=== PATIENT | male | born 1970 | race Caucasian/White ===

== ENCOUNTER 2021-02-02 10:35 | Emergency (ER) | payer MEDICAID, SELFPAY ==
[2021-02-02 11:22] VITALS: BP 144/104; PULSE 76; RESP 16; TEMP 37.1; O2SAT 97; BMI 25.1
--- NOTE | 2021-02-02 12:24 | ED.EAR ---
HPI - Ear Problem General Chief complaint: Ear Problems Stated complaint: ear pain Time Seen by Provider: 02/02/21 12:08 Source: patient Mode of arrival: ambulatory Limitations: no limitations History of Present Illness HPI Narrative: 50-year-old male presenting to the ED with complaints of left ear pain/purulent discharge for the past few days worse today after he removed a ear bud that was stuck in his ear with a nail approximately a week ago. Reports he has been using peroxide to the ear and appears to be getting worse at this point. Denies any other symptoms complaints or concerns at this time. MD Complaint: ear pain and ear discharge Location: left ear Duration: constant Severity: moderate Relieving factors: nothing Exacerbating factors: palpation Context: trauma (Had a foreign body and removed it) Discharge from ear: yes - purulent Associated symptoms ear: external ear tenderness and ear swelling Treatment prior to arrival: other (Read above) Related Data Previous Rx's Medication Instructions Recorded acetaminophen-codeine 1 tab PO Q8H PRN #10 tab 02/02/21 amoxicillin-pot clavulanate 1 tab PO BID 10 Days #20 tab 02/02/21 [Augmentin] ciprofloxacin HCl 5 drp OTIC (EARS) Q12H 7 Days ea 02/02/21 ibuprofen 800 mg PO Q8H PRN #14 tab 02/02/21 Allergies Allergy/AdvReac Type Severity Reaction Status Date / Time No Known Allergies Allergy Verified 02/02/21 11:20 Review of Systems Review of Systems: Constitutional : No Weight loss, No Fever, No Chills, No Night Sweats, No Fatigue, No Malaise ENT/Mouth : + Ear Pain/drainage, No Hearing loss, No Nasal Congestion, No Sinus Pain, No Hoarseness, No sore throat, No Rhinorrhea, No Swallowing Difficulty Eyes: No Eye Pain, No Swelling, No Redness, No Foreign Body, No Discharge, No Vision Changes Cardiovascular : No Chest Pain, No SOB, No Dyspnea on Exertion, No Orthopnea, No Edema, No Palpitations Respiratory : No Cough, No Sputum, No Wheezing, No Smoke Exposure, No Dyspnea Gastrointestinal : No Nausea, No Vomiting, No Diarrhea, No Constipation, No abdominal Pain, No Hematochezia, No Melena Genitourinary : no irregular bleeding, No Dysuria, No Urinary Frequency, No Hematuria, No Urinary Incontinence, No Urgency, No Flank Pain, No Urinary Flow Changes, No Hesitancy Musculoskeletal : No joint pain, No Myalgias, No Joint Swelling Skin : No Skin Lesions, No rash Neuro : No Weakness, No Numbness, No Paresthesias, No Loss of Consciousness, No Dizziness, No Headache Psych : No Anxiety/Panic, No Depression, No SI/HI/AH/VH, No Social Issues, Heme/Lymph: No Bruising, No Bleeding,No Lymphadenopathy Endocrine : No Polyuria, No Polydipsia, No Temperature Intolerance Yes all other systems are reviewed and are negative [facility] Past Medical History Attestation statement: The following information was validated with the patient. Medical History No known health problems Social History Social History Advance Directives: No Advance Directives Information Provided: No Physical Exam Vital Signs: Vital Signs: Last Vital Signs Temp 98.7 F 02/02/21 11:22 Pulse 76 02/02/21 11:22 Resp 16 02/02/21 11:22 BP 144/104 H 02/02/21 11:22 Pulse Ox 97 02/02/21 11:22 Body Mass Index 25.1 vital signs have been reviewed as normal and appeared to be correct. Blood pressure hypertensive at 144/104. Heart rate normal. Respiration rate normal. Temperature normal. Oxygen saturation normal. Appearance: Alert. Oriented X3. No acute distress. Head: Normal external exam. Normocephalic. Atraumatic. Eyes: PERRLA. EOMI. Conjunctiva and sclera normal. Eyelids normal. ENT: left ear Tender to palpation of tragus and pinna and purulent drainage/swelling to external ear canal consistent with otitis media tympanic membrane is intact although erythematous and bulging consistent with otitis media. Right-sided external ear canal tympanic membrane is within normal limits no signs of infection. pharynx normal. Uvula midline. Moist mucous membranes. Neck: Normal inspection. Neck supple. FROM. No adenopathy. No meningeal signs. No neck mass noted. CVS: Normal heart rate and rhythm. Heart sound normal. Pulses normal throughout. Respiratory: No respiratory distress. Painless inspiration. Back: Full range of motion noted. Skin: Skin warm and dry. Normal skin color. Normal skin turgor. No rashes/lesions/lacerations noted. Extremities: Extremities exhibit normal range of motion. Extremities nontender. Neuro: Oriented X 3. No motor deficit. No sensory deficit. Reflexes normal. Course Course Course Narrative: 50-year-old male presenting to the ED with complaints of left ear pain after he removed headphone that was stuck in his ear with a nail approximately 1 week ago now with persistent pain and drainage on exam patient is noted to be hypertensive although denies any cardiac-related complaints. Has otitis media/otitis externa to left ear right ear is within normal limits. No foreign bodies noted. Will DC home with antibiotics and symptomatic treatment along with instructions return if any new or worsening symptoms to follow up with primary care provider. Patient understands agrees the plan. MDM - Ear Medical Records Attestation: I reviewed the patient's medical records. Discharge Plan Discharge Clinical Impression: Otitis externa, Otitis media Patient Disposition: Home, Self-Care Instructions: Otitis Externa (ED), Serous Otitis Media (ED) Prescriptions: New amoxicillin-pot clavulanate [Augmentin] 875-125 mg tablet 1 tab PO BID 10 Days Qty: 20 RF: 0 ciprofloxacin HCl 0.2 % dropperette 5 drp otic (ears) Q12H 7 Days RF: 0 ibuprofen 800 mg tablet 800 mg PO Q8H PRN (Reason: pain) Qty: 14 RF: 0 acetaminophen-codeine 300-30 mg tablet 1 tab PO Q8H PRN (Reason: pain) Qty: 10 RF: 0 Referrals: Physician,None [Primary Care Provider] - 2 days (your pcp) Print Language: Yoruba
== END 2021-02-02 12:56 | disposition home or self-care (01) ==
PROVIDERS: Emergency Provider Emergency Medicine Emergency Medical Services
DX: H66.92 Otitis media, unspecified, left ear (principal); H60.92 Unspecified otitis externa, left ear; H92.02 Otalgia, left ear; Z79.899 Other long term (current) drug therapy
CPT/HCPCS: 99283

== ENCOUNTER 2021-09-06 10:48 | Outpatient (REF) | payer OTHER, SELFPAY ==
--- NOTE | ~2021-09-06 | XR_ITS ---
EXAMINATION: XR SHOULDER, RIGHT CLINICAL INFORMATION: Right shoulder pain COMPARISON: None TECHNIQUE: Three views of the right shoulder. FINDINGS: Alignment is normal at the acromioclavicular and glenohumeral joints. Small osteophytes are noted at the mildly mildly degenerated joints. There is a lucency at the base of the acromion process which could either represent prior fracture (if history of trauma to the shoulder) or possibly a meta-acromion type of os acromiale. The acromiohumeral distance is normal. No evidence of calcium deposition within rotator cuff tendons. The humeral head is well-positioned over the intact glenoid. No evidence of scapular fracture. There is an old, healed fracture of the right posterolateral seventh rib. 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 * Old, healed fracture of the right posterolateral seventh rib. * Also, there appears to be a fracture lucency or os acromiale of the acromion. Query if there is any history of recent trauma to the shoulder.
== END 2021-09-06 10:49 | disposition home or self-care (01) ==
LOC: HO.HMGCX 10:48
PROVIDERS: PCP Nurse Practitioner Family; Visit Provider Nurse Practitioner Family
DX: M25.511 Pain in right shoulder (principal)
CPT/HCPCS: 73030

== ENCOUNTER 2021-09-28 08:39 | Outpatient (REF) | payer OTHER, SELFPAY ==
--- NOTE | ~2021-09-28 | XR_ITS ---
EXAMINATION: XR SHOULDER, RIGHT CLINICAL INFORMATION: Shoulder pain. COMPARISON: Radiographs right shoulder 09/06/2021 TECHNIQUE: The right shoulder is imaged in 3 views. FINDINGS: The axial view demonstrates some focal lucency with loss of cortical white line involving the posterior aspect mid acromium measuring approximately 0.6 cm in size. There of uncertain chronicity is unknown. Prior exam does not include this projection. The remainder of the bony structures appear similar to prior study with no interval acute or healing fracture or dislocation or destructive process. There are mild degenerative changes again seen glenohumeral and acromioclavicular joints. The acromioclavicular alignment is normal. There is a corticated ossification adjacent to distal inferior acromion again seen measuring approximately 1.4 x 2.2 cm. This may possibly represent sequela from remote injury or an os acromiale variant. There are no visible rotator cuff calcifications. XR/XR shoulder RT min 2V IMPRESSION: 1. Focal cortical lytic lesion posterior mid acromium of unknown chronicity. 2. [place] adjacent to distal inferior chromium, possibly sequela from remote trauma or an os acromiale variant. Mild degenerative changes similar to previous exam. 3. Findings may be further assessed with computed tomography.
== END 2021-09-28 08:40 | disposition home or self-care (01) ==
LOC: HO.HOSX 08:39
PROVIDERS: Visit Provider Physician Assistant
DX: S42.123A Displaced fracture of acromial process, unspecified shoulder, initial encounter for closed fracture (principal)
CPT/HCPCS: 73030; 99202

== ENCOUNTER 2021-11-14 10:13 | Outpatient (REF) | payer OTHER, SELFPAY ==
--- NOTE | ~2021-11-14 | XR_ITS ---
EXAMINATION: XR CERVICAL SPINE CLINICAL INFORMATION: Pain COMPARISON: None TECHNIQUE: 3 views of the cervical spine were obtained. FINDINGS: Normal lordosis is maintained. There is degeneration most noted at C5-C6 and C6-C7 with loss of disc height and both anterior and posterior spurring. Mild posterior spurring at C4-C5 Degenerative change in the articulating facets left greater than right. XR/XR cervical spine 3V IMPRESSION: Moderate degenerative changes. No acute finding.
[2021-11-14 11:15] LABS: Appearance Urine CLEAR; Color Urine YELLOW; Glucose Urine UA NEG (NEG); Leukocyte Esterase Urine NEG (NEG); Nitrite Urine NEG (NEG); PH 7.5 (5.0-8.0); Specific Gravity - Urine 1.015 (1.005-1.025); Urine Blood NEG (NEG); Urine Ketones NEG (NEG); Urine Protein NEG (NEG-TRACE)
[2021-11-14 11:56] LABS: Alanine Aminotransferase 16 U/L (0-40); Albumin Level 4.6 g/dL (3.5-5.0); Alkaline Phosphatase 84 U/L (39-117); Anion Gap 12 (12-20); Aspartate Amino Transferase 20 U/L (5-37); Bilirubin Total 1.5 mg/dL (0.0-1.0); Blood Urea Nitrogen 13 mg/dL (9-16); Carbon Dioxide 29 mmol/L (22-29); Chloride 103 mmol/L (96-108); Cholesterol 213 mg/dL; Estimated Glomerular Filt Rate > 60; Glucose Fasting 95 mg/dL (60-99); HDL Cholesterol 42 mg/dL; LDL Cholesterol Calculated 144 mg/dl; Potassium 4.6 mmol/L (3.3-5.1); Sodium 139 mmol/L (135-145); Total Protein 7.4 g/dL (6.5-8.0); Triglycerides 138 mg/dL
[2021-11-14 12:07] LABS: Prostate Specific Antigen Scr 1.09 ng/mL (<0.05-4.0); TSH reflex Free T4 1.76 uIU/mL (0.32-4.0)
== END 2021-11-14 10:14 | disposition home or self-care (01) ==
LOC: HO.HMGCLDS 10:13
PROVIDERS: PCP Nurse Practitioner Family; Visit Provider Nurse Practitioner Family
DX: Z00.00 Encounter for general adult medical examination without abnormal findings (principal); Z12.5 Encounter for screening for malignant neoplasm of prostate; M54.2 Cervicalgia
CPT/HCPCS: 36415; 72040; 80053; 80061; 81003; 84153; 84443

== ENCOUNTER 2021-11-15 13:31 | Emergency (ER) | payer OTHER, SELFPAY ==
--- NOTE | ~2021-11-15 | CT_ITS ---
EXAMINATION: CT ABDOMEN AND PELVIS WITH CONTRAST CLINICAL INFORMATION: Fall, trauma, pain COMPARISON: CT chest 11/15/2021 TECHNIQUE: Multidetector volumetric images were obtained from the superior aspect of the liver through the pubic symphysis following administration 85 mL of Omnipaque 350 intravenous contrast. Sagittal and coronal reformatted images were obtained on the technologist's workstation. CT chest also performed, described in separate report. Oral contrast: No This CT examination was performed using dose optimization techniques as appropriate, variously including the following: *Automated exposure control *Adjustment of mA and/or kV according to patient size (this includes techniques or standardized protocols for targeted exams where dose is matched to indication/reason for exam; i.e. extremities or head) *Use of iterative reconstruction technique DLP: 665 mGy-cm FINDINGS: LUNG BASES: Subsegmental atelectasis left anterior lateral base. No effusion. LIVER, GALLBLADDER, AND BILIARY TREE: The liver is normal in size, shape, and attenuation. No focal hepatic lesion or biliary ductal dilatation is present. The gallbladder is unremarkable with no evidence of radiopaque gallstones, gallbladder wall thickening, or obvious pericholecystic inflammatory changes. PANCREAS: Unremarkable. SPLEEN: Unremarkable. ADRENAL GLANDS: Unremarkable. KIDNEYS AND URETERS: The kidneys are normal in size, shape, and attenuation. No hydronephrosis, hydroureter, or calculi seen. No perinephric stranding. BLADDER: Unremarkable. GASTROINTESTINAL TRACT: The small and large bowel are unremarkable. The appendix is unremarkable. No ascites or fluid collection. No free air. ABDOMINAL WALL: Soft tissue swelling adjacent to lower left rib fractures, 2.5 cm thickness. LYMPH NODES: No lymphadenopathy. VASCULAR: Unremarkable. PELVIC VISCERA: Unremarkable. OSSEOUS STRUCTURES: Comminuted fractures left anterior lateral 8th and 9th ribs, 1 bone diameter displacement 9th fracture. CT/CT abdomen pelvis w con IMPRESSION: 1. Fractures left anterior lateral 8th and 9th ribs with soft tissue swelling 2.5 cm thickness. 2. Abdominal organs unremarkable. Normal spleen. No ascites or free air. 3. No pneumothorax or effusion. CT chest described in separate report.
--- NOTE | ~2021-11-15 | CT_ITS ---
EXAMINATION: CT CHEST WITH CONTRAST CLINICAL INFORMATION: Fall, trauma, pain COMPARISON: Radiographs cervical spine 11/14/2021, right shoulder 09/28/2021 TECHNIQUE: Multidetector volumetric CT imaging of the chest was obtained after the administration of 85 mL of Omnipaque 350 intravenous contrast without immediate adverse reactions. Axial MIP volume rendering provided. Sagittal and coronal reformatted images were obtained. CT abdomen and pelvis also performed, described in separate report. This CT examination was performed using dose optimization techniques as appropriate, variously including the following: *Automated exposure control *Adjustment of mA and/or kV according to patient size (this includes techniques or standardized protocols for targeted exams where dose is matched to indication/reason for exam; i.e. extremities or head) *Use of iterative reconstruction technique DLP: 401 mGy-cm FINDINGS: LUNGS: No pneumothorax or airspace consolidation. There is disc atelectasis left anterior lateral base. The central airways are clear. No mass or nodule. MEDIASTINUM: Thoracic aorta normal in caliber. No dissection. No hilar or mediastinal adenopathy. No mediastinal hematoma. No pericardial effusion. 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 PLEURA: There is no pleural effusion. No pleural mass or thickening. AXILLA: No lymphadenopathy. UPPER ABDOMEN: CT abdomen and pelvis described in separate report. OSSEOUS STRUCTURES: Subacute fracture right acromium. No acute osseous abnormality. CT/CT chest w con IMPRESSION: 1. No pneumothorax. Lungs clear. No effusion. 2. Thoracic aorta normal in caliber. No dissection. 3. Incidental congenital anomaly great vessels, bovine arch. 4. Subacute fracture right acromium. No acute bony abnormality. 5. CT abdomen and pelvis described in separate report.
[2021-11-15 14:23] VITALS: BP 141/93; PULSE 73; RESP 18; TEMP 36.6; O2SAT 99; BMI 24.4
--- NOTE | 2021-11-15 15:50 | ED.FALL ---
HPI - Fall General Chief Complaint: Fall Stated Complaint: fell 10 ft, L side ribs, knee R hip chills Time Seen by Provider: 11/15/21 15:40 Source: patient Mode of arrival: ambulatory Limitations: no limitations History of Present Illness HPI Narrative: Patient comes to emergency room complaining of left flank/upper abdominal pain. 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 Patient was working on a ladder, standing approximately 11 sputum grew. The ladder slipped and patient fall on the side of his body. Patient states that he did not help lose consciousness, denies any headache, no neck pain. Patient states that the whole weight went into his left flank. Patient also complaining of lumbar pain. Related Data Previous Rx's Medication Instructions Recorded ibuprofen 800 mg tablet 800 mg PO Q8H PRN #14 tab 02/02/21 meloxicam 15 mg tablet 15 mg PO DAILY #30 tab 10/20/21 tizanidine 2 mg tablet 2 mg PO BEDTIME PRN 20 Days #20 tab 11/13/21 acetaminophen 500 mg tablet 500 mg PO QID PRN #20 tab 11/15/21 atorvastatin 10 mg tablet 10 mg PO BEDTIME 90 Days #90 tab 11/15/21 oxycodone 5 mg tablet 5 mg PO TID PRN #7 tab 11/15/21 Allergies Allergy/AdvReac Type Severity Reaction Status Date / Time No Known Allergies Allergy Verified 09/06/21 07:41 Review of Systems Review of Systems: Constitutional : No Weight loss, No Fever, No Chills, No Night Sweats, No Fatigue, No Malaise ENT/Mouth : No Hearing loss, No Ear Pain, No Nasal Congestion, No Sinus Pain, No Hoarseness, No sore throat, No Rhinorrhea, No Swallowing Difficulty Eyes: No Eye Pain, No Swelling, No Redness, No Foreign Body, No Discharge, No Vision Changes Cardiovascular : No Chest Pain, No SOB, No Dyspnea on Exertion, No Orthopnea, No Edema, No Palpitations Respiratory : No Cough, No Sputum, No Wheezing, No Smoke Exposure, No Dyspnea Gastrointestinal : No Nausea, No Vomiting, No Diarrhea, No Constipation, No abdominal Pain, No Hematochezia, No Melena Genitourinary : no irregular bleeding, No Dysuria, No Urinary Frequency, No Hematuria, No Urinary Incontinence, No Urgency, No Flank Pain, No Urinary Flow Changes, No Hesitancy Musculoskeletal : Complaining of left lower rib pain Skin : No Skin Lesions, No rash Neuro : No Weakness, No Numbness, No Paresthesias, No Loss of Consciousness, No Dizziness, No Headache Psych : No Anxiety/Panic, No Depression, No SI/HI/AH/VH, No Social Issues, Heme/Lymph: No Bruising, No Bleeding,No Lymphadenopathy Endocrine : No Polyuria, No Polydipsia, No Temperature Intolerance [facility] Past Medical History Medical History No known health problems Family History Family History Other Mental health disorder Substance use disorder Social History Social History Housing: Other (lives with family (brother)) Patient Tobacco Use Status: Current everyday Tobacco user Tobacco use type: Cigarette Cigarette Packs Per Day: 1 Advance Directives: No Advance Directives Information Provided: No Current occupational status: employed Physical Exam Vital Signs: Vital Signs: Last Vital Signs Temp 97.9 F 11/15/21 14:23 Pulse 77 11/15/21 20:22 Resp 16 11/15/21 20:22 BP 160/101 H 11/15/21 20:22 Pulse Ox 95 11/15/21 20:22 BMI result Body Mass Index 24.4 Const: Other: Appearance: Alert. Oriented X3. No acute distress. Eyes: Pupils equal, round and reactive to light. ENT: Pharynx normal. Neck: Normal inspection. Neck supple. No lymph nodes noted. No crepitus, normal range of motion, no cervical spine tenderness, no palpable step-off CVS: Normal heart rate and rhythm. Pulses normal. Normal S1 and S2 Respiratory: No respiratory distress. Breath sounds normal. No Wheezing. No rales Abdomen: Soft , mild tenderness in the left upper quadrant but mostly on the left flank. On palpation, seems that the lower ribs may be fractured on the left side Skin: Skin warm and dry. Normal skin color. Normal skin turgor. Extremities: No lower extremity edema.No Lacerations. No Rash Neuro: Oriented X 3. No motor deficit. No sensory deficit. Moving all extermities. No slurred speech. Course Course Course Narrative: I discussed the CT findings with the patient, patient has 2 rib fractures. The hematoma in his abdomen seems to be localized between the abdominal wall on the skin. H&H repeat is pending. H&H stable. Patient's hematoma in the abdominal wall is not expanding. MDM - Fall Lab Data Result diagrams: 11/15/21 17:15 11/15/21 Unknown Labs: Lab Results 11/15/21 11/15/21 11/15/21 Range/Units 17:04 17:07 17:15 WBC 13.9 H (4.8-10.8) X10*3/uL RBC 4.95 (4.60-5.80) X10*6/uL Hgb 14.8 (14.0-18.0) g/dl Hct 44.2 (42.0-52.0) % MCV 89.3 (80.0-98.0) fL MCH 29.9 (27.0-33.0) pg MCHC 33.5 (31.0-36.0) g/dl RDW 12.9 (11.0-16.0) % Plt Count 184 (160-400) X10*3/uL MPV 9.3 L (9.4-12.4) fL Immature Gran % (Auto) 0.4 (0.0-0.4) % Neut % (Auto) 77.6 H (45-73) % Lymph % (Auto) 14.4 L (20-40) % [place] % (Auto) 6.7 (2-11) % Eos % (Auto) 0.6 (0-4) % Baso % (Auto) 0.3 (0-2) % Lymph # (Auto) 2.0 (1.2-4.9) X10*3/uL [place] # (Auto) 0.9 (0.1-1.2) X10*3/uL Eos # (Auto) 0.1 (0.0-0.4) X10*3/uL Baso # (Auto) 0.0 (0.0-0.2) X10*3/uL Abs Immat Gran (auto) 0.06 H (0.00-0.03) X10*3/uL Absolute Neuts (auto) 10.8 H (2.0-8.3) x10*3/uL Absolute Nucleated RBC 0.000 (0.0-0.012) X10*3/uL Nucleated RBC % (auto) 0.0 (0.0-0.2) /100WBC PT (9.9-13.0) SEC INR (0.9-1.1) APTT (24.1-38.0) SEC Urine Color YELLOW Urine Appearance CLEAR Urine pH 6.5 (5.0-8.0) Ur Specific [place] 1.015 (1.005-1.025) Urine Protein NEG (NEG-TRACE) MG/DL Urine Glucose (UA) NEG (NEG) MG/DL Urine Ketones NEG (NEG) MG/DL Urine Blood NEG (NEG) Urine Nitrite NEG (NEG) Ur Leukocyte Esterase NEG (NEG) COVID-19 (MARVIN) Negative (Negative) COVID-19 Clin Com See Note 11/15/21 Range/Units 17:15 WBC (4.8-10.8) X10*3/uL RBC (4.60-5.80) X10*6/uL Hgb (14.0-18.0) g/dl Hct (42.0-52.0) % MCV (80.0-98.0) fL MCH (27.0-33.0) pg MCHC (31.0-36.0) g/dl RDW (11.0-16.0) % Plt Count (160-400) X10*3/uL MPV (9.4-12.4) fL Immature Gran % (Auto) (0.0-0.4) % Neut % (Auto) (45-73) % Lymph % (Auto) (20-40) % [place] % (Auto) (2-11) % Eos % (Auto) (0-4) % Baso % (Auto) (0-2) % Lymph # (Auto) (1.2-4.9) X10*3/uL [place] # (Auto) (0.1-1.2) X10*3/uL Eos # (Auto) (0.0-0.4) X10*3/uL Baso # (Auto) (0.0-0.2) X10*3/uL Abs Immat Gran (auto) (0.00-0.03) X10*3/uL Absolute Neuts (auto) (2.0-8.3) x10*3/uL Absolute Nucleated RBC (0.0-0.012) X10*3/uL Nucleated RBC % (auto) (0.0-0.2) /100WBC PT 11.9 (9.9-13.0) SEC INR 1.0 (0.9-1.1) APTT 36.5 (24.1-38.0) SEC Urine Color Urine Appearance Urine pH (5.0-8.0) Ur Specific [place] (1.005-1.025) Urine Protein (NEG-TRACE) MG/DL Urine Glucose (UA) (NEG) MG/DL Urine Ketones (NEG) MG/DL Urine Blood (NEG) Urine Nitrite (NEG) Ur Leukocyte Esterase (NEG) COVID-19 (MARVIN) (Negative) COVID-[address] Clin Com Imaging Data [address] of the abdomen: Radiologist's impression: INDINGS: LUNG BASES: Subsegmental atelectasis left anterior lateral base. No effusion.? LIVER, GALLBLADDER, AND BILIARY TREE: The liver is normal in size, shape, and attenuation. No focal hepatic lesion or biliary ductal dilatation is present. The gallbladder is unremarkable with no evidence of radiopaque gallstones, gallbladder wall thickening, or obvious pericholecystic inflammatory changes.? PANCREAS: Unremarkable.? SPLEEN: Unremarkable.? ADRENAL GLANDS: Unremarkable.? KIDNEYS AND URETERS: The kidneys are normal in size, shape, and attenuation. No hydronephrosis, hydroureter, or calculi seen. No perinephric stranding. ? BLADDER: Unremarkable.? GASTROINTESTINAL TRACT: The small and large bowel are unremarkable. The appendix is unremarkable. No ascites or fluid collection. No free air. ABDOMINAL WALL: Soft tissue swelling adjacent to lower left rib fractures, 2.5 cm thickness.? LYMPH NODES: No lymphadenopathy. VASCULAR: Unremarkable. PELVIC VISCERA: Unremarkable.? OSSEOUS STRUCTURES: Comminuted fractures left anterior lateral 8th and 9th ribs, 1 bone diameter displacement 9th fracture. ? CT/CT abdomen pelvis w con IMPRESSION: ? 1. Fractures left anterior lateral 8th and 9th ribs with soft tissue swelling 2.5 cm thickness. 2. Abdominal organs unremarkable. Normal spleen. No ascites or free air.? 3. No pneumothorax or effusion. CT chest described in separate report. CT of the chest: Radiologist's impression: FINDINGS: LUNGS: No pneumothorax or airspace consolidation. There is disc atelectasis left anterior lateral base. The central airways are clear. No mass or nodule.? MEDIASTINUM: Thoracic aorta normal in caliber. No dissection. No hilar or mediastinal adenopathy. No mediastinal hematoma. No pericardial effusion. 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 PLEURA: There is no pleural effusion. No pleural mass or thickening.? AXILLA: No lymphadenopathy.? UPPER ABDOMEN: CT abdomen and pelvis described in separate report.? OSSEOUS STRUCTURES: Subacute fracture right acromium. No acute osseous abnormality.? CT/CT chest w con IMPRESSION: ? 1. No pneumothorax. Lungs clear. No effusion. 2. Thoracic aorta normal in caliber. No dissection. 3. Incidental congenital anomaly great vessels, bovine arch. 4. Subacute fracture right acromium. No acute bony abnormality. 5. CT abdomen and pelvis described in separate report. Discharge Plan Discharge Clinical Impression: Fall, Multiple rib fractures, Hematoma Patient Disposition: Home, Self-Care Instructions: Rib Fracture (ED), Hematoma (ED) Additional Instructions: If the hematoma (bruise/blood collection) in the abdominal wall increases in size or becomes more painful, please return immediately to the emergency room. Please follow-up with your primary care physician tomorrow. If you have any worsening or new symptoms, please return to the emergency room or call 911 Prescriptions: New oxycodone 5 mg tablet 5 mg PO TID PRN (Reason: pain) Qty: 7 RF: 0 acetaminophen 500 mg tablet 500 mg PO QID PRN (Reason: fever or pain) Qty: 20 RF: 0 No Action meloxicam 15 mg tablet 15 mg PO DAILY Qty: 30 RF: 0 tizanidine 2 mg tablet 2 mg PO BEDTIME PRN (Reason: muscle spasticity) 20 Days Qty: 20 RF: 0 atorvastatin 10 mg tablet 10 mg PO BEDTIME 90 Days Qty: 90 RF: 0 ibuprofen 800 mg tablet 800 mg PO Q8H PRN (Reason: pain) Qty: 14 RF: 0 Stand Alone Forms: Work/School Release
[2021-11-15] MEDS: iohexoL 350 MG/ML 100 ML INFUS..BTL IV (16:11)
[2021-11-15] MEDS: 0.9 % Sodium Chloride 1,000 ML 999 ML IVCONT (16:23)
[2021-11-15 16:24] VITALS: BP 148/95; PULSE 65; RESP 20; O2SAT 98
[2021-11-15 17:23] LABS: MANUAL DIFF FLAG NO
[2021-11-15 17:26] LABS: Basophils Percent Auto 0.3 % (0-2); Eosinophils Absolute Auto 0.1 X10*3/uL (0.0-0.4); Eosinophils Percent Auto 0.6 % (0-4); Hematocrit 44.2 % (42.0-52.0); Hemoglobin 14.8 g/dl (14.0-18.0); Imm Gran Abs Auto 0.06 X10*3/uL (0.00-0.03); Imm Gran Pct Auto 0.4 % (0.0-0.4); Lymphocytes Percent Auto 14.4 % (20-40); Mean Corpuscular HGB Conc 33.5 g/dl (31.0-36.0); Mean Corpuscular Hemoglobin 29.9 pg (27.0-33.0); Mean Corpuscular Volume 89.3 fL (80.0-98.0); Mean Platelet Volume 9.3 fL (9.4-12.4); Monocytes Absolute Auto 0.9 X10*3/uL (0.1-1.2); Monocytes Percent Auto 6.7 % (2-11); Neutrophils Absolute Auto 10.8 x10*3/uL (2.0-8.3); Neutrophils Percent Auto 77.6 % (45-73); Platelet Count 184 X10*3/uL (160-400); Red Blood Count 4.95 X10*6/uL (4.60-5.80); Red Cell Distribution Width 12.9 % (11.0-16.0); White Blood Count 13.9 X10*3/uL (4.8-10.8)
[2021-11-15 17:30] LABS: Prothrombin Time 11.9 SEC (9.9-13.0)
[2021-11-15 17:31] LABS: Appearance Urine CLEAR; Color Urine YELLOW; Glucose Urine UA NEG (NEG); Leukocyte Esterase Urine NEG (NEG); Nitrite Urine NEG (NEG); PH 6.5 (5.0-8.0); Specific Gravity - Urine 1.015 (1.005-1.025); Urine Blood NEG (NEG); Urine Ketones NEG (NEG); Urine Protein NEG (NEG-TRACE)
[2021-11-15 17:33] LABS: Partial Thromboplastin Time 36.5 SEC (24.1-38.0)
--- NOTE | 2021-11-15 17:38 | PC.NURSE ---
PT SITTING UP ON HIS PHONE, OFFERS NO CHANGE IN STATUS, AWAITING RESULTS
[2021-11-15 17:41] LABS: COVID-19 Test Negative (Negative)
[2021-11-15 19:08] VITALS: RESP 12
[2021-11-15] MEDS: Morphine Sulfate 4 MG/ML CARTRIDGE IVPUSH (19:08)
[2021-11-15 20:22] VITALS: BP 160/101; PULSE 77; RESP 16; O2SAT 95
[2021-11-15 20:26] LABS: Hematocrit 43.4 % (42.0-52.0)
[2021-11-15 20:52] LABS: Alanine Aminotransferase 18 U/L (0-40); Albumin Level 4.3 g/dL (3.5-5.0); Alkaline Phosphatase 79 U/L (39-117); Anion Gap 12 (12-20); Aspartate Amino Transferase 23 U/L (5-37); Bilirubin Direct 0.4 mg/dL (0.0-0.5); Bilirubin Total 1.4 mg/dL (0.0-1.0); Blood Urea Nitrogen 11 mg/dL (9-16); Calcium 9.5 mg/dL (8.4-10.2); Carbon Dioxide 27 mmol/L (22-29); Chloride 105 mmol/L (96-108); Estimated Glomerular Filt Rate > 60; Glucose Random 124 mg/dL (60-115); Potassium 4.3 mmol/L (3.3-5.1); Sodium 140 mmol/L (135-145); Total Protein 7.2 g/dL (6.5-8.0)
== END 2021-11-15 21:33 | disposition home or self-care (01) ==
PROVIDERS: Emergency Provider Emergency Medicine; PCP Nurse Practitioner Family
DX: S22.42XA Multiple fractures of ribs, left side, initial encounter for closed fracture (principal); S30.1XXA Contusion of abdominal wall, initial encounter; W11.XXXA Fall on and from ladder, initial encounter; Z20.822 Contact with and (suspected) exposure to COVID-19; Y93.89 Activity, other specified; Y92.9 Unspecified place or not applicable; Y99.0 Civilian activity done for income or pay
CPT/HCPCS: 36415; 71260; 74177; 80048; 80076; 81003; 85014; 85018; 85025; 85610; 85730; 87635; 96361; 96374; 99284; J2270; Q9967

== ENCOUNTER 2021-12-18 14:19 | Outpatient (REF) | payer OTHER, SELFPAY ==
--- NOTE | ~2021-12-18 | XR_ITS ---
EXAMINATION: XR HIP, RIGHT , CLINICAL INFORMATION: Pain COMPARISON: None available at the time of this dictation. TECHNIQUE: Frontal and lateral views of the hip acquired. FINDINGS: There is no evidence of acute fracture or dislocation. There are mild degenerative arthritic changes of the hip evident by sclerotic changes of the acetabular roof and narrowing of the joint space. Symphysis pubis unremarkable. Included SI joints unremarkable. Adjacent pubic rami are intact. Surrounding soft tissues are unremarkable. XR/XR hip RT min 2V IMPRESSION: Mild degenerative osteoarthritis. Exam otherwise normal, no evidence of destructive bone lesion. .
--- NOTE | ~2021-12-18 | XR_ITS ---
EXAMINATION: XR LUMBAR SPINE CLINICAL INFORMATION: Low back pain COMPARISON: None TECHNIQUE: Frontal lateral and coned-down L5-S1 frontal lateral FINDINGS: Five [id number] lumbar vertebrae were identified maintaining normal height and alignments. Narrowing of intervertebral disc spaces at L3-L4, L4-L5 and L5-S1 suggests underlying degenerative disc disease. Paravertebral soft tissues are unremarkable. There are radiolucencies, most likely superimposed bowel gas.. No radiographic evidence of osteolytic or osteoblastic lesions. XR/XR lumbar spine 2-3V IMPRESSION: No fracture. Narrowing of intervertebral disc spaces suggest underlying degenerative disc disease.
[2021-12-18 16:56] LABS: Cholesterol 205 mg/dL; HDL Cholesterol 40 mg/dL; LDL Cholesterol Calculated 116 mg/dl; Triglycerides 247 mg/dL
== END 2021-12-18 14:20 | disposition home or self-care (01) ==
LOC: HO.HMGCLDS 14:19
PROVIDERS: Visit Provider Nurse Practitioner Family
DX: M54.50 Low back pain, unspecified (principal); E78.5 Hyperlipidemia, unspecified; M25.551 Pain in right hip
CPT/HCPCS: 36415; 72100; 73502; 80061

== ENCOUNTER 2021-12-19 15:58 | Outpatient (REF) | payer OTHER, SELFPAY ==
--- NOTE | ~2021-12-19 | XR_ITS ---
EXAMINATION: XR CERVICAL SPINE CLINICAL INFORMATION: Fall COMPARISON: Previous x-ray 11/14/2021 TECHNIQUE: 4 views of the cervical spine including swimmer's view were obtained. FINDINGS: The lower cervical spine, the C7 and T1 vertebral bodies, are not well visualized. Bone alignment is normal. No fracture or dislocation is seen. There is degenerative spondylosis at C4-C5, C5-C6 and C6-C7. There is degenerative disc disease at C5-C6 and C6-C7. Prevertebral soft tissues are normal. XR/XR cervical spine 3V IMPRESSION: Limited visualization of C7 and T1. Degenerative changes.
== END 2021-12-19 15:59 | disposition home or self-care (01) ==
LOC: HO.HMGCX 15:58
PROVIDERS: Visit Provider Nurse Practitioner Family
DX: Z91.81 History of falling (principal)
CPT/HCPCS: 72040

== ENCOUNTER → 2022-01-05 15:59 | Outpatient (BNVA) | payer OTHER, SELFPAY | PROVIDERS: PCP Nurse Practitioner Family; Referring Provider Nurse Practitioner Family; Visit Provider Nurse Practitioner | DX: Z12.11 Encounter for screening for malignant neoplasm of colon (principal) | CPT/HCPCS: 99202 ==

== ENCOUNTER 2022-06-26 11:21 | Outpatient (REF) | payer OTHER, SELFPAY ==
--- NOTE | ~2022-06-26 | XR_ITS ---
EXAMINATION: XR RIBS, LEFT CLINICAL INFORMATION: Rib fractures COMPARISON: Previous chest CT October 2021 TECHNIQUE: 3 views of the left ribs and one view of the chest were obtained. FINDINGS: Lungs are clear. No consolidation, pneumothorax, or pleural effusion. The cardiomediastinal silhouette and pulmonary vasculature are normal. There are old left anterior sixth through ninth rib fractures. No acute fracture is seen. XR/XR ribs LT min 3V w CXR1V IMPRESSION: Old left anterior sixth through ninth rib fractures. No acute rib fracture seen.
== END 2022-06-26 11:22 | disposition home or self-care (01) ==
LOC: HO.HMGCX 11:21
PROVIDERS: PCP Nurse Practitioner Family; Visit Provider Nurse Practitioner Family
DX: S22.42XA Multiple fractures of ribs, left side, initial encounter for closed fracture (principal)
CPT/HCPCS: 71101

== ENCOUNTER 2022-09-01 09:38 | Outpatient (REF) | payer OTHER, SELFPAY | END 2022-09-01 09:39 | disposition home or self-care (01) | LOC: HO.LAB 09:38 | PROVIDERS: Visit Provider Nurse Practitioner Acute Care | DX: R30.0 Dysuria (principal) | CPT/HCPCS: 87086 ==

== ENCOUNTER → 2023-02-14 08:04 | Outpatient (REF) | payer OTHER, SELFPAY ==
--- NOTE | 2023-02-14 08:08 | CA_ITS ---
Transthoracic Echocardiogram Patient (Last, First, Middle): Mauro Gant, Gender: Male Date of : 1970 Age: 52 Procedure Date: 02/14/2023 Procedure Type: Transthoracic Echocardiogram Location: OP Height: 182.88 cm Weight: 81.65 kg BSA: 2.04 m2 Heart Rate: bpm BP: 130 / 78 mmHg Iron Bender: TO Referring MD: Mo Guevara [facility] Symptoms: R07.89 - Other chest pain Study Quality: Fair ECG Rhythm: Sinus Conclusions: - The left ventricular systolic function is normal. The calculated ejection fraction is 58% by biplane method. - No obvious valvular pathology seen on this study. Findings Left Ventricle Normal left ventricular cavity size. There is normal left ventricular wall thickness. The left ventricular systolic function is normal. The calculated ejection fraction is 58% by biplane method. There is no evidence of regional wall motion abnormalities. Diastolic function is normal for age. LV peak GLS -18.5%. Right Ventricle Normal right ventricular cavity size and systolic function. Atria Both atria are normal in size. Aortic Valve There is a normal trileaflet aortic valve. There is no aortic valve stenosis. There is no aortic valve regurgitation. Mitral Valve The mitral valve appears normal. There is no mitral valve regurgitation. There is no mitral valve stenosis. Pulmonic Valve The pulmonic valve is likely normal. Tricuspid Valve There is trace tricuspid valve regurgitation. There is no evidence of pulmonary hypertension. Great Vessels The asc aorta is normal in size. Venous The inferior vena cava is dilated and collapses greater than 50% with inspiration. Pericardium/Pleural There is a trivial pericardial effusion. Prior Study Comparison No prior study available for comparison. Recommendations, Care & Conclusions No obvious valvular pathology seen on this study. Measurements 2D Linear Measurements IVSd: 1.01 0.6-0.9/0.6-1.0 cm LVIDd: 5.43 3.9-5.3/4.2-5.9 cm LVIDd Index: 2.66 2.4-3.2/2.2-3.1 cm/m2 LVIDs: 3.67 2.0-3.6 cm LVPWd: 0.86 0.7-1.1 cm LA Diam: 3.40 2.7-3.8/3.0-4.0 cm LAIDs Index: 1.67 1.5-2.3 cm/m2 LV Mass: 237.74 67-162/88-224 g LV Mass Index: 116.54 43-95/49-115 g/m2 LVOT Diam: 2.10 3.0+(-)1.3 cm 2D Systolic Function EF 4C: 61.10 >55% EF 2C: 57.50 >55% EF BiP: 58.20 >55% Mitral Valve MV Pk E: 0.75 MV PK A: 0.63 MV Decel Time: 190.00 E/A: 1.20 E'Lateral: 8.38 E'Medial: 8.92 E/E' Med: 8.40 E/E' Lat: 8.90 PHT: 56.00 MVA PHT: 3.93 Decel [place]: 3.94 Aortic Valve AoV Pk Hiro: 1.22 AoV Mn Hiro: 0.82 AoV VTI: 0.27 AoV Pk Grad: 6.00 Aov Mn Grad: 3.00 JUAN Cont.VTI: 2.56 LVOT LVOT Pk Hiro: 0.91 LVOT Mn Hiro: 0.58 LVOT VTI: 0.20 LVOT Pk Grad: 3.00 LVOT Mn Grad: 2.00 LVOT Diam: 2.10 LVOT Area: 3.46 Diastolic Function MV Pk E: 0.75 MV Pk A: 0.63 E/A: 1.20 E'Medial: 8.92 E/E' Med: 8.40 E' Laterial: 8.38 E/E' Lat: 8.90 Right Ventricle TAPSE (mm): 22.70 TVS' Hiro: 13.10 Tricuspid Valve RA Press: 8.00 Great Vessels Aorta Sinus of Valsalva: 4.05 2.0-3.5 cm Ao Asc: 3.60 2.1-3.4 cm Updated in Other Vendor System with Status of Final Nelson Underwood MD electronically signed on 02/15/2023 12:40:24 PM with status of Final
--- NOTE | 2023-02-14 08:08 | CA_ITS ---
Acquisition Time: 2023-02-14 09:07:02 Total Exercise Time: 00:10:17 Test Indications: ABN EKG, RBBB Medications: SEE H Protocol: MANDY Max HR: 157 BPM 92% of Pred: 169 BPM Max BP: 174/078 mmHG Max Work Load: 12.2 METS Exercise stress test with exercise 10 min 17 sec of Mandy protocol achieving 92% MPHR, without anignal symptoms, with isolated PVCs, with normotensive response to exercise, no EKG changes meeting ciriteria for ischemia. Test reviewed with Dr. Underwood. Referred By: Mo Guevara Overread By: AGUSTIN RAY
== END ==
LOC: HO.CARD 08:04
PROVIDERS: PCP Nurse Practitioner Family; Visit Provider Nurse Practitioner Family
DX: R07.89 Other chest pain (principal); I45.2 Bifascicular block
CPT/HCPCS: 93017; 93306; 93356

== ENCOUNTER 2023-05-02 07:42 | Day surgery (SDC) | payer OTHER, SELFPAY ==
[2023-04-30 09:32] VITALS: BMI 24.5
[2023-04-30 11:02] VITALS: BMI 24.5
--- NOTE | 2023-05-01 10:59 | HO.ANESPROP2 ---
Documented by User: Alesha Wilkins NP 05/01/23 11:01 HPI - Anesthesia Eval Consult details Narrative: 52yo M for Colonoscopy 01/2023 w/u for chest discomfort/abnormal EKG. Negative stress, nml echo PMFSH Active Problems Active Problems: All Active Problems (Updated 04/30/23 @ 11:02 by Maral Taylor, KIMBERLEE) Physical exam (Acute) Screening PSA (prostate specific antigen) (Acute) Right shoulder pain (Acute) Screening for colon cancer (Acute) Cervical pain (neck) (Acute) Closed fracture of acromion (Acute) Dyslipidemia (Acute) Lumbar back pain (Acute) Acute hip pain (Acute) Ribs, multiple fractures (Acute) Fall (Acute) Cervical pain (neck) (Acute) Colon cancer screening (Acute) Dysuria (Acute) Finger abrasion, infected (Acute) Infected finger laceration (Acute) Onychomycosis (Acute) Physical exam (Acute) RBBB (right bundle branch block with left anterior fascicular block) (Acute) Chest discomfort (Acute) Ecchymosis (Acute) Past Medical History Medical History Anxiety Ecchymosis Elevated cholesterol Seasonal allergies Wears dentures Family History Family History Other Mental health disorder Substance use disorder Surgical History Surgical History No pertinent past surgical history Social History Social History Household Members: Significant Other Housing: House (lives with family (brother)) Are you a primary insurance healthcare consultant to a significant other at home: No Do you presently have visiting nurse or other home services: No Patient Tobacco Use Status: Current everyday Tobacco user Tobacco use type: Cigarette Cigarettes Per Day: 15 Years Smoked: 30 Use of substances other than those prescribed or required for medical reasons: Yes Substance Use Type: Marijuana Substance Use Frequency: Daily Are you DNR?: No Advance Directives: No Advance Directives Information Provided: Yes Advance Directives on File: No Current occupational status: employed Cognitive needs: No Hearing needs: No Vision needs: No Meds Allergies Allergy/AdvReac Type Severity Reaction Status Date / Time No Known Allergies Allergy Verified 05/01/23 10:42 Home Medications Medication Instructions Recorded Confirmed Last Taken Type hydrocortisone 1 % topical cream 1 appl NV DAILY pain 05/02/23 05/02/23 Unknown History with perineal applicator Exam Exam Date and Time: May 01, 2023 1059 Height,Weight and Vital Signs: Height 5 ft 11 in Weight 79.832 kg Narrative Narrative: EKG 01/2023 NSR @ [employer] Inc RBBB LAFB Exercise Stress 01/2023 Protocol: EMIGDIO ? Max HR: 157 BPM? 92% of? Pred: 169 BPM Max BP: 174/078 mmHG Max Work Load: 12.2 METS ? Exercise stress test with exercise 10 min 17 sec of Emigdio protocol achieving 92% ?MPHR, without anignal symptoms, with isolated PVCs, with normotensive response ?to exercise, no EKG changes meeting ciriteria for ischemia. Test reviewed with ?Dr. Underwood. ECHO 01/2023 Conclusions: - The left ventricular systolic function is normal.? The ? calculated ejection fraction is 58% by biplane method. ? - No obvious valvular pathology seen on this study.? Assessment and Plan Assessment Anesthesia Assessment: Chart Reviewed Documented by User: Maida Jim MD 05/02/23 09:48 [facility] Past Medical History Medical History Anxiety Ecchymosis Elevated cholesterol Seasonal allergies Wears dentures Family History Family History Other Mental health disorder Substance use disorder Family history of problems with anesthesia: No Surgical History Surgical History No pertinent past surgical history History of Problems with Anesthesia: No Social History Social History Household Members: Significant Other Housing: House (lives with family (brother)) Are you a primary insurance healthcare consultant to a significant other at home: No Do you presently have visiting nurse or other home services: No Patient Tobacco Use Status: Current everyday Tobacco user Tobacco use type: Cigarette Cigarettes Per Day: 15 Years Smoked: 30 Use of substances other than those prescribed or required for medical reasons: Yes Substance Use Type: Marijuana Substance Use Frequency: Daily Are you DNR?: No Advance Directives: No Advance Directives Information Provided: Yes Advance Directives on File: No Current occupational status: employed Cognitive needs: No Hearing needs: No Vision needs: No Meds Allergies Allergy/AdvReac Type Severity Reaction Status Date / Time No Known Allergies Allergy Verified 05/01/23 10:42 Home Medications Medication Instructions Recorded Confirmed Last Taken Type hydrocortisone 1 % topical cream 1 appl NV DAILY pain 05/02/23 05/02/23 Unknown History with perineal applicator Exam Airway Mallampati Class: I TM Dist: >3cm Neck ROM: Full Denture: Upper Partial: Lower Loose/Missing/Broken Teeth: No Heart: rr Lungs: cta Assessment and Plan Assessment Anesthesia Assessment: Anesthesia Plan Discussed Final Anesthetic Review Family History of Problems with Anesthesia: No History of Problems with Anesthesia: No NPO: Yes ASA Class: II Final Preanesthetic Review: No Changes in Pt Med Stat, Meds/Allgs Chart Reviewed, Consent Obtained/Reviewed and Anes Risks/Benef Reviewed Patient Risk: Low Procedure Risk: Low Anesthetic Plan Anesthetic Plan: MAC: Disposition: Standard PACU
[2023-05-02 08:07] VITALS: BP 120/65; PULSE 61; RESP 18; TEMP 36.1; O2SAT 96
--- NOTE | 2023-05-02 08:07 | MHC.SHP ---
Pre-Procedural Eval Section A Date of Service: 05/02/23 Section B Chief Complaint: Encounter for screening for malignant neoplasm Relevant Social History: None Present Medications: see Short Stay Collaborative assessment Medical History: No relevant PMH History of Previous Operations: No relevant previous surgery Allergies: Allergies Allergy/AdvReac Type Severity Reaction Status Date / Time No Known Allergies Allergy Verified 05/01/23 10:42 Review of Systems Review of Systems Comment: 10 point ROS negative Exam Exam Comment: Gen appear: No acute distress HEENT: no icterus Chest: No overt resp distress Abd: soft, nontender, nondistended Psych: Stable affect, answering questions appropriately Neuro: A/Ox3 noted to move all extremities spontaneously Ext: no peripheral edema Plan Diagnosis/Plan: Unchanged I have reviewed the history and physical and performed a pertinent physical examination on my patient. No changes have occurred unless specified. Time Spent With Patient Time: Total time managing care of this patient today ____ minutes.
[2023-05-02] MEDS: Lactated Ringers 1,000 ML 100 ML IVCONT (08:27)
--- NOTE | 2023-05-02 10:13 | P.OP_ITS ---
Operative Note Operative Note Date of Service: 05/02/23 Narrative: Procedure: Colonoscopy Indication: Screening Endoscopist: Torri Durand MD Anesthesia Provider: Dr Maida Jim Anesthesia type: MAC Instrument: Olympus [id number]-H190L Consent: Indication, risks vs benefits, and alternatives were discussed with the patient who gave written informed consent to proceed. EKG, pulse, pulse oximetry and blood pressure were monitored throughout the procedure. Please see anesthesia flowsheet. Procedure: The patient was brought to the procedure room and placed in the left lateral decubitus position. IV medications were administered by the anesthesia provider in attendance. A digital rectal exam was performed which was abnormal for ext hemorrhoids. A distal attachment cap was affixed to the tip of the scope the colonoscope was then inserted through the anus and advanced through the colon to the cecum at 75 cm,and terminal ileum. Mucosa was carefully examined under high definition white light as the instrument was slowly withdrawn in a retrograde panoramic fashion. Retroflexion was performed in rectum. The procedure was not difficult. There were no immediate obvious complications. The quality of the prep was BBPS: 3+2+3 = adequate Withdrawal time 20 minutes. Limitations: No limitations. Findings: Mucosa: Normal to cecum and terminal ileum. Protruding lesions: * 7 sessile polyp of size 2-8 mm in transverse colon. Cold snare polypectomy was performed. The polyps were completely removed and retrieved. * 2 sessile polyp of size 5-6 mm in sigmoid colon. Cold snare polypectomy was performed. The polyp was completely removed and retrieved. * Large internal hemorrhoids without stigmata of recent bleeding. Excavated lesions: * Moderate diverticulosis of sigmoid colon. Impression: 1. Normal colon and terminal mucosa 2. Total of 9 polyps removed from transverse and sigmoid colon. 3. External and internal hemorrhoids 4. Sigmoid diverticulosis Recommendations: - Follow path results. - Repeat colonoscopy in 3 years if polyps are adenomas or sessile serrated.
[2023-05-02 10:19] VITALS: BP 115/78; PULSE 55; RESP 16; TEMP 36.1; O2SAT 97
[2023-05-02 10:34] VITALS: BP 137/89; PULSE 54; RESP 16; TEMP 36.4; O2SAT 99
== END 2023-05-02 11:03 | disposition home or self-care (01) ==
PROVIDERS: PCP Nurse Practitioner Family; Visit Provider Internal Medicine
PROC: 0DJD8ZZ Inspection of Lower Intestinal Tract, Via Natural or Artificial Opening Endoscopic (ICD-10-PCS; CPT 45378; principal; 2023-05-02 09:10)
DX: Z12.11 Encounter for screening for malignant neoplasm of colon (principal); D12.3 Benign neoplasm of transverse colon; D12.5 Benign neoplasm of sigmoid colon; K57.30 Diverticulosis of large intestine without perforation or abscess without bleeding; K64.8 Other hemorrhoids; K64.4 Residual hemorrhoidal skin tags; E78.00 Pure hypercholesterolemia, unspecified; J30.2 Other seasonal allergic rhinitis; F41.1 Generalized anxiety disorder; Z79.899 Other long term (current) drug therapy; F17.210 Nicotine dependence, cigarettes, uncomplicated; F12.90 Cannabis use, unspecified, uncomplicated
CPT/HCPCS: 45385; 88305

== ENCOUNTER → 2023-05-17 16:00 | Outpatient (BNVA) | payer OTHER, SELFPAY | PROVIDERS: PCP Nurse Practitioner Family; Visit Provider Nurse Practitioner | DX: Z12.11 Encounter for screening for malignant neoplasm of colon (principal); D36.9 Benign neoplasm, unspecified site | CPT/HCPCS: 99212 ==

== ENCOUNTER 2023-06-11 12:07 | Emergency (ER) | payer OTHER, SELFPAY ==
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
--- NOTE | ~2023-06-11 | XR_ITS ---
EXAMINATION: XR ANKLE, RIGHT CLINICAL INFORMATION: Status post fall, rule out ankle fracture. COMPARISON: None available. TECHNIQUE: AP, lateral, and mortise views of the right ankle. FINDINGS: No fracture. Alignment is anatomic. No erosions. Joint spaces are maintained. Soft tissues are normal. XR/XR ankle RT min 3V IMPRESSION: Unremarkable right ankle.
--- NOTE | ~2023-06-11 | XR_ITS ---
EXAMINATION: XR SHOULDER, RIGHT CLINICAL INFORMATION: Right shoulder pain status post fall. COMPARISON: Right shoulder radiographs dated 09/28/2021. TECHNIQUE: Three views of the right shoulder. FINDINGS: Mild right acromioclavicular degenerative joint changes are seen. There is no acute fracture or dislocation. Old healed posterolateral right seventh rib fracture. The soft tissues are unremarkable. XR/XR shoulder RT min 2V IMPRESSION: Mild right acromioclavicular degenerative joint changes. No acute fracture.
[2023-06-11 12:35] VITALS: BP 124/84; PULSE 79; RESP 18; TEMP 36.3; O2SAT 98; BMI 25.1
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
[2023-06-11] MEDS: Ibuprofen 800 MG TABLET PO (15:31)
--- NOTE | 2023-06-11 15:32 | PC.NURSE ---
pt unhappy with discharge from triage, requesting medication prior to leaving, pt medicated per MAR.
== END 2023-06-11 15:33 | disposition home or self-care (01) ==
LOC: HO.ED 15:19
PROVIDERS: Emergency Provider Emergency Medicine Emergency Medical Services; PCP Nurse Practitioner Family
DX: Z04.1 Encounter for examination and observation following transport accident (principal); M25.571 Pain in right ankle and joints of right foot; M25.531 Pain in right wrist; M19.011 Primary osteoarthritis, right shoulder; F17.210 Nicotine dependence, cigarettes, uncomplicated; F12.90 Cannabis use, unspecified, uncomplicated
CPT/HCPCS: 73030; 73110; 73610; 99283

== ENCOUNTER 2023-06-13 08:41 | Outpatient (AMB) | payer OTHER, SELFPAY ==
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
[2023-06-13 08:52] VITALS: BP 134/80; PULSE 80; TEMP 36.8; O2SAT 98
== END 2023-06-13 10:19 | disposition home or self-care (01) ==
PROVIDERS: PCP Nurse Practitioner Family; Visit Provider Emergency Medicine
DX: S92.901A Unspecified fracture of right foot, initial encounter for closed fracture (principal)
CPT/HCPCS: 99213

== ENCOUNTER 2023-06-13 09:22 | Outpatient (REF) | payer OTHER, SELFPAY ==
--- NOTE | ~2023-06-13 | XR_ITS ---
EXAMINATION: XR FOOT, RIGHT CLINICAL INFORMATION: Injury COMPARISON: None available. TECHNIQUE: AP, lateral, and oblique views of the right foot. FINDINGS: Comminuted but nondisplaced fracture involving the proximal first phalanx. Fracture line extends into the first PIP joint space but does not appear to extend into the first MTP joint space. There is overlying soft tissue swelling of the first toe. There are degenerative changes of the first MTP joint. XR/XR foot RT min 3V IMPRESSION: Comminuted but nondisplaced fracture involving the proximal first phalanx.
== END 2023-06-13 09:23 | disposition home or self-care (01) ==
LOC: HO.HMGCX 09:22
PROVIDERS: PCP Nurse Practitioner Family; Visit Provider Emergency Medicine
DX: S99.921A Unspecified injury of right foot, initial encounter (principal)
CPT/HCPCS: 73630

== ENCOUNTER 2023-06-18 08:28 | Outpatient (AMB) | payer OTHER, SELFPAY ==
[2023-06-18 08:32] VITALS: BMI 25.1
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
== END 2023-06-18 09:19 | disposition home or self-care (01) ==
PROVIDERS: PCP Nurse Practitioner Family; Visit Provider Physician Assistant
DX: S92.414A Nondisplaced fracture of proximal phalanx of right great toe, initial encounter for closed fracture (principal); M25.571 Pain in right ankle and joints of right foot
CPT/HCPCS: 99213

== ENCOUNTER → 2023-06-18 08:28 | Outpatient (BNVA) | payer OTHER, SELFPAY | PROVIDERS: PCP Nurse Practitioner Family; Visit Provider Physician Assistant | DX: S92.411A Displaced fracture of proximal phalanx of right great toe, initial encounter for closed fracture (principal); V29.39XA Other motorcycle (driver) (passenger) injured in unspecified nontraffic accident, initial encounter; Y93.I9 Activity, other involving external motion; Y92.410 Unspecified street and highway as the place of occurrence of the external cause; Y99.9 Unspecified external cause status | CPT/HCPCS: 99212 ==

== ENCOUNTER 2023-08-02 10:42 | Outpatient (REF) | payer OTHER, SELFPAY ==
--- NOTE | ~2023-08-02 | XR_ITS ---
EXAMINATION: XR FOOT, RIGHT CLINICAL INFORMATION: Pain in unspecified foot COMPARISON: 06/13/2023 right foot TECHNIQUE: AP, lateral, and oblique views of the right foot. FINDINGS: The fracture clefts of the comminuted but nondisplaced fracture involving the proximal first phalanx are less distinct. Fracture clefts are still visible however. No change in position or alignment of the fracture fragments. Interval decrease in soft tissue swelling. Marked degenerative change of the first metatarsophalangeal joint. XR/XR foot RT min 3V IMPRESSION: Healing comminuted but nondisplaced fracture involving the proximal first phalanx.
== END 2023-08-02 10:43 | disposition home or self-care (01) ==
LOC: HO.HOSX 10:42
PROVIDERS: Visit Provider Physician Assistant
DX: S92.404D Nondisplaced unspecified fracture of right great toe, subsequent encounter for fracture with routine healing (principal)
CPT/HCPCS: 73630; 99212

== ENCOUNTER 2023-08-02 11:19 | Outpatient (AMB) | payer OTHER, SELFPAY ==
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
[2023-08-02 11:22] VITALS: BMI 25.1
== END 2023-08-02 11:42 | disposition home or self-care (01) ==
PROVIDERS: PCP Nurse Practitioner Family; Visit Provider Physician Assistant
DX: S92.404D Nondisplaced unspecified fracture of right great toe, subsequent encounter for fracture with routine healing (principal)
CPT/HCPCS: 99213

== ENCOUNTER 2024-01-25 07:25 | Outpatient (REF) | payer OTHER, SELFPAY ==
[2024-01-25 10:58] LABS: Appearance Urine Clear; Color Urine Yellow; Glucose Urine UA Negative (Negative); Leukocyte Esterase Urine Trace (Negative); Nitrite Urine Negative (Negative); PH 7.5 (5.0-9.0); Specific Gravity - Urine 1.015 (1.005-1.025); UMIC TRIGGER UACC YES; Urine Blood Negative (Negative); Urine Ketones Negative (Negative); Urine Protein Negative (Neg-Trace)
[2024-01-25 11:02] LABS: Bacteria Urine None Seen (None Seen); Hyaline Casts Urine 0-2 /LPF (0-2); RBC Urine 0-2 /HPF (0-2); Squamous Epithelial Cell Urine 0-2 /HPF (0-2); WBC Urine 0-5 /HPF (0-5)
[2024-01-25 11:09] LABS: Basophils Absolute Auto 0.1 X10*3/uL (0.0-0.2); Basophils Percent Auto 0.6 % (0-2); Eosinophils Absolute Auto 0.3 X10*3/uL (0.0-0.4); Eosinophils Percent Auto 3.7 % (0-4); Hematocrit 47.2 % (42.0-52.0); Hemoglobin 16.1 g/dl (14.0-18.0); Imm Gran Abs Auto 0.02 X10*3/uL (0.00-0.03); Imm Gran Pct Auto 0.3 % (0.0-0.4); Lymphocytes Absolute Auto 2.5 X10*3/uL (1.2-4.9); Lymphocytes Percent Auto 32.5 % (20-40); MANUAL DIFF FLAG NO; Mean Corpuscular HGB Conc 34.1 g/dl (31.0-36.0); Mean Corpuscular Hemoglobin 31.3 pg (27.0-33.0); Mean Corpuscular Volume 91.8 fL (80.0-98.0); Mean Platelet Volume 10.7 fL (9.4-12.4); Monocytes Absolute Auto 0.6 X10*3/uL (0.1-1.2); Monocytes Percent Auto 7.2 % (2-11); Neutrophils Absolute Auto 4.3 x10*3/uL (2.0-8.3); Neutrophils Percent Auto 55.7 % (45-73); Platelet Count 206 X10*3/uL (160-400); Red Blood Count 5.14 X10*6/uL (4.60-5.80); Red Cell Distribution Width 12.9 % (11.0-16.0); White Blood Count 7.8 X10*3/uL (4.8-10.8)
[2024-01-25 12:30] LABS: Prostate Specific Antigen Scr 0.79 ng/mL (<0.05-4.0)
[2024-01-25 12:35] LABS: Alanine Aminotransferase 25 U/L (0-40); Albumin Level 4.6 g/dL (3.5-5.0); Alkaline Phosphatase 95 U/L (39-117); Anion Gap 13 (12-20); Aspartate Amino Transferase 25 U/L (5-37); Bilirubin Total 1.7 mg/dL (0.0-1.0); Blood Urea Nitrogen 12 mg/dL (9-16); Calcium 9.7 mg/dL (8.4-10.2); Carbon Dioxide 27 mmol/L (22-29); Chloride 105 mmol/L (96-108); Cholesterol 163 mg/dL (<200); Estimated Glomerular Filt Rate > 60; Glucose Fasting 111 mg/dL (60-99); HDL Cholesterol 56 mg/dL (>40); LDL Cholesterol Calculated 83 mg/dL (<100); Potassium 4.1 mmol/L (3.3-5.1); Sodium 141 mmol/L (135-145); Total Protein 7.7 g/dL (6.5-8.0); Triglycerides 123 mg/dL (<150)
[2024-01-25 12:36] LABS: TSH reflex Free T4 1.85 uIU/mL (0.32-4.0)
== END 2024-01-25 07:26 | disposition home or self-care (01) ==
LOC: HO.HMGCLDS 07:25
PROVIDERS: PCP Nurse Practitioner Family; Visit Provider Nurse Practitioner Family
DX: Z00.00 Encounter for general adult medical examination without abnormal findings (principal); Z12.5 Encounter for screening for malignant neoplasm of prostate; Z13.6 Encounter for screening for cardiovascular disorders
CPT/HCPCS: 36415; 80053; 80061; 81001; 84153; 84443; 85025

== ENCOUNTER 2024-02-04 09:44 | Outpatient (AMB) | payer OTHER, SELFPAY ==
[2024-02-04 10:39] VITALS: BP 140/100; PULSE 73; TEMP 36.2; O2SAT 97; BMI 24.7
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
== END 2024-02-04 11:42 | disposition home or self-care (01) ==
PROVIDERS: PCP Nurse Practitioner Family; Visit Provider Internal Medicine
DX: S67.22XA Crushing injury of left hand, initial encounter (principal); M79.89 Other specified soft tissue disorders
CPT/HCPCS: 99215

== ENCOUNTER 2024-02-04 10:57 | Outpatient (REF) | payer OTHER, SELFPAY ==
--- NOTE | ~2024-02-04 | XR_ITS ---
EXAMINATION: XR HAND, LEFT CLINICAL INFORMATION: Crush injury of hand. COMPARISON: None available. TECHNIQUE: PA, lateral, and oblique views of the left hand. FINDINGS: There is loss of PIP and DIP joint with periarticular spurring the DIP joints and PIP joints. There is no visible acute fracture, dislocation or subluxation seen. There is mild dorsal hand soft tissue swelling. XR/XR hand LT min 3V IMPRESSION: Degenerative arthritic changes left hand. No visible acute fracture or dislocation seen.
== END 2024-02-04 10:58 | disposition home or self-care (01) ==
LOC: HO.HMGCX 10:57
PROVIDERS: PCP Nurse Practitioner Family; Visit Provider Internal Medicine
DX: S67.22XA Crushing injury of left hand, initial encounter (principal)
CPT/HCPCS: 73130

== ENCOUNTER 2024-02-07 09:57 | Outpatient (REF) | payer OTHER, SELFPAY ==
--- NOTE | ~2024-02-07 | US_ITS ---
EXAMINATION: US ABDOMEN COMPLETE CLINICAL INFORMATION: Unspecified jaundice. COMPARISON: CT abdomen and pelvis 11/15/2021. TECHNIQUE: Real-time imaging of the abdominal viscera. Limited visualization due to bowel gas. FINDINGS: PANCREAS: Limited visualization of pancreatic tail and head. Imaged portion of pancreatic body is unremarkable. ABDOMINAL AORTA: Unremarkable. INFERIOR VENA CAVA: Visualized portions are normal. LIVER: Borderline mildly increased hepatic parenchymal heterogeneity and echogenicity could be associated with hepatocellular disease/hepatic steatosis and substantially limits visualization. Correlation with liver function tests and clinical exam recommended to determine further management. GALLBLADDER: No gallstones. No gallbladder wall thickening. COMMON BILE DUCT: Normal in caliber measuring 0.22 cm in diameter. RIGHT KIDNEY: No hydronephrosis. No renal calculi. Limited visualization. The kidney measures 10.5 cm in maximum dimension. LEFT KIDNEY: No hydronephrosis. No renal calculi. Limited visualization. The kidney measures 9.8 cm in maximum dimension. SPLEEN: Normal. The spleen measures 11.0 cm in maximum dimension. FREE FLUID: None. US/US abdomen complete IMPRESSION: Borderline mildly increased hepatic parenchymal heterogeneity and echogenicity could be associated with hepatocellular disease/hepatic steatosis and substantially limits visualization. Correlation with liver function tests and clinical exam recommended to determine further management.
[2024-02-07 13:06] LABS: Appearance Urine Clear; Color Urine Yellow; Glucose Urine UA Negative (Negative); Leukocyte Esterase Urine Negative (Negative); Nitrite Urine Negative (Negative); Urine Blood Negative (Negative); Urine Ketones Negative (Negative); Urine Protein Negative (Neg-Trace)
[2024-02-07 13:18] LABS: Immature Retic Fraction 8.7 % (2.3-13.4); Retic HGB Equivalent 36.2 pg (30.0-35.0); Reticulocyte Percent 1.8 % (0.5-1.8); Reticulocytes Absolute 0.082 X10*6/uL (0.026-0.095)
[2024-02-07 13:36] LABS: Bilirubin Direct 0.3 mg/dL (0.0-0.5); Bilirubin Total 1.4 mg/dL (0.0-1.0); Lactate Dehydrogenase 239 U/L (118-273)
[2024-02-14 14:52] LABS: Haptoglobin 102
== END 2024-02-07 09:58 | disposition home or self-care (01) ==
LOC: HO.HMGCX 09:57
PROVIDERS: PCP Nurse Practitioner Family; Visit Provider Nurse Practitioner Family
DX: R17 Unspecified jaundice (principal); Z00.00 Encounter for general adult medical examination without abnormal findings
CPT/HCPCS: 36415; 76700; 81003; 82247; 82248; 83010; 83615; 85045

== ENCOUNTER 2024-04-16 12:54 | Outpatient (AMB) | payer OTHER, SELFPAY ==
--- NOTE | 2024-04-16 12:58 | MHC.PC.OV ---
Vital Signs 04/16/24 13:00 Height 5 ft 11 in Weight 175 lb BMI 24.4 BP 130/100 H Blood Pressure Location Lt brachial Position Sitting Pulse 63 Pulse Source Pulse Oximeter Pulse Oximetry (%) 96 Oxygen Delivery Method Room Air Intake Visit Reasons: PE Intake Note: Patient here for physical exam. Colon: Allergies No Known Allergies Allergy (Verified 04/16/24 13:02) Tobacco use date assessed: 04/16/24 Dental Screening Dental Screen Date: 04/16/24 Did you have a dental visit in the last 12 months?: No Did you have a dental problem in the last 6 months where you did not have access to dental care?: No Was dental information given to patient?: No HPI PE HPI Details Pt is here for a PE. Will order labs. Colon screen is up to date. PSA is up to date. Pt has been a PPD smoker since age 12. Will refer for low-dose CT. Pt has a laceration to his left thumb that occurred 2 months ago. This is healing well. Pt reports that his blood pressure at home has been in the 120s-130s/70s-80s. Will have him continue to monitor his BP at home and send readings via portal. [facility] Medical History Foot injury Wears dentures Anxiety Elevated cholesterol Seasonal allergies Ecchymosis Surgical History No pertinent past surgical history Family History Other Mental health disorder Substance use disorder Social History Household Members: Significant Other Housing: House Are you a primary patient care technician to a significant other at home: No Do you presently have visiting nurse or other home services: No Patient Tobacco Use Status: Current everyday Tobacco user Tobacco use type: Cigarette Cigarettes Per Day: 15 Years Smoked: 30 Substance Use Type: Marijuana Current occupational status: employed 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 Cognitive needs: No Hearing needs: No Vision needs: No Questionnaire PHQ-9 Over the last 2 weeks, how often have you been bothered by any of the following problems? 1. Little interest or pleasure in doing things: not at all 2. Feeling down, depressed, or hopeless: not at all 3. Trouble falling or staying asleep, or sleeping too much: not at all 4. Feeling tired or having little energy: not at all 5. Poor appetite or overeating: not at all 6. Feeling bad about yourself - or that you are a failure or have let yourself or your family down: not at all 7. Trouble concentrating on things, such as reading the newspaper or watching television: not at all 8. Moving or speaking so slowly that other people could have noticed. Or the opposite - being so fidgety or restless that you have been moving around a lot more than usual: not at all 9. Thoughts that you would be better off or of hurting yourself in some way: not at all Total score: 0 Depression Screening Interpretation: Negative Depression Screening Done: Yes 76381 - PHQ-9 Billing: Yes Source: Developed by Drs. Tonny Rockwell, Neha Stark, Cesar Flynn and colleagues, with an educational laquita from [employer]. Thrive Questionnaire Date Thrive assessed: 04/16/24 I am a: Patient What is your living situation today?: I have a steady place to live Within the past 12 months, did the food you bought not last and you didn't have the money to get more?: Never true Within the past 12 months, did you worry whether your food would run out before you got money to buy more?: Never true Do you have trouble paying for medicines?: No Do you have trouble getting transportation to medical appointments?: No Do you have trouble paying your heating and electricity bill?: No Do you have trouble taking care of your child, family member or friend?: No Do you have trouble with day-to-day activities such as bathing, preparing meals, shopping, managing finances, etc.?: No Are you currently unemployed and looking for a job?: No Are you interested in more education?: No Currently or been in a relationship where the following occur: I choose not to answer this question THRIVE Score: 0 AUDIT C Alcohol Use Questionnaire (AUDIT-C) 1. How often do you have a drink containing alcohol?: 2-4 times a month 2. How many drinks containing alcohol do you have on a typical day when you are drinking?: 1 or 2 3. How often do you have six or more drinks on one occasion?: Never Total Score: 2 Score Reviewed/Action Taken: No RICHARD-7 AMB Questionnaire RICHARD-7 Date RICHARD - 7 assessed: 04/16/24 Feeling nervous, anxious, or on edge: 0 = Not at all Not being able to stop or control worryin = Not at all Worrying too much about different things: 0 = Not at all Trouble relaxin = Not at all Being so restless that it is hard to sit still: 0 = Not at all Becoming easily annoyed or irritable: 0 = Not at all Feeling afraid as if something awful might happen: 0 = Not at all Total RICHARD-7 score (0-4 normal; 5-9 mild; 10-14 moderate; 15-21 severe): 0 Source: Developed by Drs. Tonny Rockwell, Neha Stark, Cesar Flynn and colleagues, with an educational laquita from [employer]. RICHARD-7 Assessment Billing RICHARD-7 Assessment Tool: RICHARD-7 Assessment 79751 Review of Systems Const Denies chills and Denies fever(s) Eyes Denies blurry vision ENT Denies vertigo, Denies dizziness and Denies sore throat Card Denies chest pain at rest, Denies chest pain with activity, Denies diaphoresis, Denies dyspnea and Denies dyspnea on exertion Resp Denies cough, Denies dyspnea, Denies dyspnea on exertion and Denies wheezing GI Denies abdominal pain, Denies melena, Denies hematochezia, Denies constipation, Denies diarrhea and Denies loose stools Denies hematuria Musc Denies numbness and Denies tingling Skin/Breast Denies lesions Neuro Denies vertigo, Denies dizziness, Denies numbness and Denies tingling Psych Denies anxiety, Denies depression, Denies homicidal ideation, Denies suicidal ideation and Denies other (substance abuse) Aller/Immun Denies wheezing Physical exam (Primary Care) Vital Signs: Last Vital Signs Pulse 63 04/16/24 13:00 BP 130/100 H 04/16/24 13:00 Pulse Ox 96 04/16/24 13:00 Oxygen Delivery Method Room Air 04/16/24 13:00 BMI result Body Mass Index 24.4 Tobacco/Smoking Status: Tobacco use Status Tobacco use date assessed 04/16/24 04/16/24 13:04 Patient Tobacco Use Status Current everyday Tobacco 04/16/24 12:59 Tobacco use type Cigarette 04/16/24 12:59 Depression Screening Interpretation: Negative Thrive Assessment: Date of Thrive Assessment Date Thrive assessed 12/19/21 04/16/24 12:59 Currently or been in a relationship where the following occur: I choose not to answer this question Const General: cooperative Nutritional Appearance: well nourished Orientation/consciousness: patient oriented x3 HENMT Head: Yes normal to inspection, Yes normocephalic and Yes atraumatic Ears: TM's normal bilaterally Eyes General: appearance normal, both eyes and all related structures Alignment and Position: alignment normal and position normal Neck Neck: Yes normal visual inspection and Yes no lymphadenopathy Thyroid: Thyroid normal Resp Effort & Inspection: normal respiratory effort Auscultation: clear to auscultation bilaterally Cardio Rate: regular rate Rhythm: regular rhythm Heart sounds: S1 normal heart sound present, S2 normal heart sound present and no murmurs GI Palpation (GI): Soft to palpation and nontender Auscultation: normal bowel sounds Male General Exam: Yes normal external exam Penis: normal penis Scrotum: scrotum normal, testes descended bilaterally and no inguinal hernias Testes: no testicular mass Skin Other: left thumb with large healing laceration, no signs of infection Rashes: no rashes Neuro General: patient oriented x3, moves all extremities, no focal motor deficits and deep tendon reflexes 2+ bilaterally Romberg Test: Negative Psych Appearance: grossly normal Mental Status: mental status grossly normal Speech and movement: Normal speech and movement present Affect: normal affect Attitude: cooperative Thought process: Normal thought process present Thought content: Normal thought content present Insight: Good insight present (Psych) Judgement: Good judgement present (Psych) Assessment and Plan Assessment & Plan (1) Smoker: Code(s): F17.200 - Nicotine dependence, unspecified, uncomplicated Plan: Referred for LDCT (2) HTN (hypertension): Code(s): I10 - Essential (primary) hypertension Plan: pt will take his BP at home, and send me values via the portal (3) Encounter for routine adult physical exam with abnormal findings: Code(s): Z00.01 - Encounter for general adult medical examination with abnormal findings Plan The patient agreed to the use of a diagnostic medical sonographer for this encounter. Scribed for ALEX Resendiz by Michelle Mcbride diagnostic medical sonographer, on 04/16/2024 at 13:05 EST. Orders: Orders Complete Blood Count Auto Diff Today Z00.00 - Encounter for general adult medical examination without abnormal findings TSH reflex Free T4 Today Z00.00 - Encounter for general adult medical examination without abnormal findings UA CC w/rflx Micro + Cult Today Z00.00 - Encounter for general adult medical examination without abnormal findings Lipid Panel Today Z00.00 - Encounter for general adult medical examination without abnormal findings Comprehensive Freer. Panel Fast Today Z00.00 - Encounter for general adult medical examination without abnormal findings Referrals Thoracic/General Surgery Referral F17.200 - Nicotine dependence, unspecified, uncomplicated Coding Level of Care Code Est Pt Prev Care 40-64y(60937) Diagnoses Smoker F17.200 HTN (hypertension) I10 Encounter for routine adult physical exam with abnormal findings Z00.01 Additional Codes RICHARD-7 Assessment Billing - RICHARD-7 Assessment Tool: RICHARD-7 Assessment 67995 ([id number])
[2024-04-16 13:00] VITALS: BP 130/100; PULSE 63; O2SAT 96; BMI 24.4
== END 2024-04-16 14:17 | disposition home or self-care (01) ==
PROVIDERS: PCP Nurse Practitioner Family; Visit Provider Nurse Practitioner Family
DX: Z00.00 Encounter for general adult medical examination without abnormal findings (principal); F17.210 Nicotine dependence, cigarettes, uncomplicated; I10 Essential (primary) hypertension
CPT/HCPCS: 99396

== ENCOUNTER 2024-06-19 10:35 | Outpatient (AMB) | payer OTHER, SELFPAY ==
--- NOTE | 2024-06-19 08:05 | MHC.OFFVIS ---
Intake Visit Reasons: Current Smoker Allergies No Known Allergies Allergy (Verified 04/16/24 13:02) HPI HPI Current Smoker: Details: Initial visit for this 53yo smoker with a 30PYH. Patient has been smoking since age 12 for 41 years at 3/4ppd. . Reports daily marijuana use. Denies second hand smoke exposure. Reports exposure to asbestos and soot - work as [employer]ish[employer]. . Denies known family history of lung cancer. Denies personal history of cancers. Denies chest CT in last year. . Denies recent travel outside the [place]. Denies recent respiratory illness or recent hospitalization for respiratory issues. Denies testing positive for COVID. Admits receiving COVID Vaccine. x 2. . Denies fever, chills, new/worsening cough, hemoptysis, hoarseness or dysphagia. Denies significant chest pain, significant dyspnea or unintentional weight loss. Patient Lung Cancer Screening Questionnaire reviewed with patient by provider. . Shared Decision Making Completed. Patient meets criteria. Discussed in detail with patient, the risk vs benefit of LDCT screening. Patient consents to proceed with scan. Discussed smoking cessation. [facility] Medical History (Updated 06/19/24 @ 11:00 by Joelle Resendez PA-C) HTN (hypertension) Elevated cholesterol Seasonal allergies Nicotine dependence, cigarettes, uncomplicated Multiple adenomatous polyps Anxiety Foot injury Wears dentures Surgical History (Updated 06/19/24 @ 11:00 by Joelle Resendez PA-C) History of adenoidectomy History of colonoscopy Family History Other Mental health disorder Substance use disorder Social History (Updated 06/19/24 @ 11:09 by Joelle Resendez PA-C) Household Members: Significant Other Housing: House Are you a primary adult care provider to a significant other at home: No Do you presently have visiting nurse or other home services: No Patient Tobacco Use Status: Current everyday Tobacco user Tobacco use type: Cigarette Cigarettes Per Day: 15 Years Smoked: (onset 12yo, 3/4ppd x 41yrs, 30pyh) Substance Use Type: Marijuana Current occupational status: employed 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 Cognitive needs: No Hearing needs: No Vision needs: No Assessment & Plan Assessment & Plan (1) Nicotine dependence, cigarettes, uncomplicated: Comment: (onset 12yo, 3/4ppd x 41yrs, 30pyh) Code(s): F17.210 - Nicotine dependence, cigarettes, uncomplicated Category: Medical Plan: - SDM visit completed today in office. - Patient meets criteria for LDCT for lung cancer screening purposes and is asymptomatic. - Smoking cessation counseling offered. Patients can always call [phone]. - Will arrange for a LDCT scan of the chest for screening purposes at [facility]. - Risks, benefits, and alternatives were discussed in detail and the patient agrees to proceed. - Risks discussed include but are not limited to: radiation exposure, anxiety during testing and while awaiting results, false negatives, false positives and possibility of additional intervention such as further imaging or surgical procedures for benign disease. - Benefits are obviously detection of lung cancer at an early stage which can lead to improved outcomes. - Discussed the importance of screening program compliance with adherence to yearly LDCT scan as scheduled - or sooner interval scans for personalized screening regimen. - Discussed follow up plan. Our office will send a letter discussing results and if needed set up phone call and office visit based on CT findings. - Patient educated on results categorization and the management decisions for suspicious findings potentially found on the screening LDCT scan. Any patient with a Lung RADS score of 3 or 4 will be reviewed by a multidisciplinary team at [facility] to form a plan of action in regards to scan findings. - If further work up is warranted for a suspicious lung finding this will be followed by the Lung Cancer Screening program in conjunction with the Thoracic Surgery Department at [facility]. - A copy of the office note and LDCT will be sent to the patient's PCP - as well as documentation on any associated further plans of care. - Incidental findings on LDCT are the PCP's responsibility. These findings are indicated with an S finding on the LDCT Assessment. A note discussing the findings will be sent to the PCP who is then responsible for further management. - All questions answered.? Coding Level of Care Code Lung Cancer Screening G0296 Diagnoses Nicotine dependence, cigarettes, uncomplicated F17.210
== END 2024-06-19 12:55 | disposition home or self-care (01) ==
PROVIDERS: PCP Nurse Practitioner Family; Referring Provider Nurse Practitioner Family; Visit Provider Physician Assistant Medical
DX: F17.210 Nicotine dependence, cigarettes, uncomplicated (principal)
CPT/HCPCS: G0296

== ENCOUNTER 2024-06-19 11:08 | Outpatient (REF) | payer OTHER, SELFPAY ==
--- NOTE | ~2024-06-19 | CT_ITS ---
EXAMINATION: CT LOW-DOSE SCREENING CHEST WITHOUT CONTRAST CLINICAL INFORMATION: Nicotine dependence, cigarettes, uncomplicated. The patient is a current smoker with a 41 pack-year history of smoking. COMPARISON: X-ray chest June 26, [address] chest November 15, 2021. TECHNIQUE: Multidetector volumetric CT imaging of the chest is performed on a Siemens SOMATOM Definition scanner without contrast using low dose technique. Additional 2D coronal and sagittal reformatted images and axial 3D maximum intensity projection (MIP) images are generated on the CT workstation. This CT examination was performed using dose optimization techniques as appropriate, variously including the following: *Automated exposure control *Adjustment of mA and/or kV according to patient size (this includes techniques or standardized protocols for targeted exams where dose is matched to indication/reason for exam; i.e. extremities or head) *Use of iterative reconstruction technique TOTAL EXAM DLP: 55 mGy-cm. CTDIvol: 1.50 mGy. FINDINGS: PULMONARY NODULES: There is a 5.3 mm left lower lobe pulmonary nodule (5:281) which is new when compared to the 2020 study. LUNGS: There is moderate emphysema along with diffuse bronchial thickening without bronchiectasis. No effusion or pneumothorax. Central airways patent. MEDIASTINUM: No mediastinal, hilar or axillary adenopathy or free fluid collection. CORONARY ARTERY CALCIFICATION: None visualized on this study. THYROID GLAND: Unremarkable to the extent seen. CARDIOVASCULAR STRUCTURES: Aortic and heart size normal. No pericardial effusion. CHEST WALL/AXILLA: Unremarkable. UPPER ABDOMEN: Mild splenomegaly at 13.4 cm. OSSEOUS STRUCTURES: No suspicious focal findings. CT/CT lung screening IMPRESSION: New 5.3 mm left lower lobe pulmonary nodule. ASSESSMENT: 1. Lung-RADS Category 3: Probably benign findings. N/A 2. Lung-RADS Category S: Negative. There are no clinically significant or potentially clinically significant findings not related to the lungs requiring urgent additional evaluation. RECOMMENDATION: A 6-month follow up low-dose lung CT scan is recommended. An order for CT LUNG CANCER SCREENING SHORT INTERVAL FOLLOWUP ([id number]) can be placed. Electronically signed by: Natanael Julien MD 07/31/2024 01:38 PM EDT
== END 2024-06-19 11:09 | disposition home or self-care (01) ==
LOC: HO.CT 11:08
PROVIDERS: Visit Provider Physician Assistant Medical
DX: Z12.2 Encounter for screening for malignant neoplasm of respiratory organs (principal); F17.210 Nicotine dependence, cigarettes, uncomplicated
CPT/HCPCS: 71271; G0296

== ENCOUNTER 2024-12-01 15:27 | Outpatient (REF) | payer OTHER, SELFPAY ==
--- NOTE | ~2024-12-01 | CT_ITS ---
CLINICAL HISTORY: F17.210 - Nicotine dependence, cigarettes, uncomplicated CT lung cancer screening (LDCT) Comparison: CT/MS/SR - CT LUNG SCREENING - 06/19/24 11:17 EDT Technique: Axial CT images of the chest using low-dose technique. Referring provider counseled the patient on shared decision-making for LDCT screening. Additional counseling was provided on smoking cessation. Effective radiation dose total: DLP 46.5 mGycm, CTDIvol 1.3 mGy. Findings: Lung: There is mild emphysema. The previous noted pulmonary nodule of the left lower lobe is no longer visualized likely to be inflammatory. Coronary artery calcifications: None Limited upper abdomen: Unremarkable Other: None Impression: LungRADS 1: Negative exam. Continue annual screening with low dose Chest CT in 12 months. ##L1# Category 1: Normal; continue annual screening Category 2: Benign appearance or behavior, continue annual screening Category 3: Probably benign, [address] recommended Category 4A: Suspicious, [address] recommended; may consider PET/CT Category 4B: Suspicious, Additional diagnostics and/or tissue sampling recommended Category 4X: Suspicious, Additional diagnostics and/or tissue sampling recommended Category 0: Recalls (incomplete screen due to Incomplete coverage, Noise, Respiratory motion, Expiration, Obscured by acute abnormality) This document has been electronically signed by: Jensen Garcia MD on 12/03/2024 13:17:51
--- OUTSIDE RECORDS SUMMARY | 2024-12-01 17:50 | XMS_ITS | Continuity of Care Document ---
Author Organization [facility] Address [address] [place] [address] Phone Care Team Providers Care Manager Pathology Name Role Phone Mo Bray MD Unavailable Unavailable Procedures Procedure Date Followup hospital care, [facility] 2014 Advance Directives Directive Yes / No Effective Date File Name No Information Encounters Encounter Description Practice Location Reason(s) For Visit Diagnoses Date Provider Providers Copied on Encounter Followup hospital care, [facility][note 3], [address], [place], [id number], tel:[phone] [facility] No Information Asa Hassan. [address], [place], [id number], . tel:[phone] Referring Provider: Mo Quiñones, [address] [place], [address]. tel:[phone] Family History Family Member Type Diagnosis Age At Onset No Information Payers Payer name Insurance type Covered green party ID Authoriza tion(s) [id number] Social History Type Description Quantity Date Captured [...]
== END 2024-12-01 15:28 | disposition home or self-care (01) ==
LOC: HO.CT 15:27
PROVIDERS: PCP Nurse Practitioner Family; Visit Provider Physician Assistant Medical
DX: R91.1 Solitary pulmonary nodule (principal); F17.210 Nicotine dependence, cigarettes, uncomplicated
CPT/HCPCS: 71250

== ENCOUNTER → 2024-12-01 15:31 | Outpatient (BNV) | payer OTHER, SELFPAY | PROVIDERS: PCP Nurse Practitioner Family; Visit Provider Nuclear Medicine | DX: F17.210 Nicotine dependence, cigarettes, uncomplicated (principal) | CPT/HCPCS: 71250 ==

== ENCOUNTER 2025-05-18 12:51 | Outpatient (AMB) | payer OTHER, SELFPAY ==
--- OUTSIDE RECORDS SUMMARY | 2015-05-06 20:00 | XMS_ITS | Continuity of Care Document ---
Author Organization [facility] Address [address] [place] [address] Phone Care Team Providers Care Optical Mechanic Name Role Phone Asa LUCAS, Mo Unavailable Unavailable Procedures Procedure Date Followup hospital care, [facility] 2014 Advance Directives Directive Yes / No Effective Date File Name No Information Encounters Encounter Description Practice Location Reason(s) For Visit Diagnoses Date Provider Providers Copied on Encounter Followup hospital care, [facility], [address], [place], [id number], tel:[phone] [facility] [place] [facility] No Information Asa Hassan. [address], [place], [id number], . tel:[phone] Referring Provider: Mo Quioñnes, [address] [place], [address]. tel:[phone] Family History Family Member Type Diagnosis Age At Onset No Information Payers Payer name Insurance type Covered alliance party ID Authoriza tion(s) [id number] Social History Type Description Quantity Date Captured Comments Sex Male Smoking Status No Information Chief Complaint And Reason For Visit No Information Reason For Referral Reason For Referral No Information History Of Present Illness Encounter Date Complaint History Of Prese nt Illness No Information Functional Status Date Functional Assessmen t No Information Instructions Date Instruction Additional Infor mation No Information Assessments Type Assessment Date No Information Patient Care Teams Name Effective Dates (start - stop) Status Members No Information
--- NOTE | 2025-05-18 12:55 | MHC.PC.OV ---
Vital Signs 05/18/25 12:57 Height 5 ft 11 in Weight 176 lb BMI 24.5 BP 136/80 Blood Pressure Location Lt brachial Position Sitting Pulse 76 Pulse Source Pulse Oximeter Pulse Oximetry (%) 95 Oxygen Delivery Method Room Air Intake Visit Reasons: PE Intake Note: Patient here for physical exam. Colon: Social Security Specialist Required: No Accompanied by: Self / Same As Patient Allergies No Known Allergies Allergy (Verified 05/18/25 12:57) Medication List - Last Reconciled 05/18/25 by ALEX Hummel acetaminophen 500 mg PO ONCE PRN atorvastatin 20 mg PO BEDTIME 90 days ibuprofen 600 mg PO ONCE PRN tizanidine 4 mg PO BEDTIME PRN 30 days Tobacco use date assessed: 05/18/25 Dental Screening Dental Screen Date: 05/18/25 Did you have a dental visit in the last 12 months?: No Did you have a dental problem in the last 6 months where you did not have access to dental care?: No Was dental information given to patient?: No HPI PE HPI Details History of Present Illness The patient is a 54-year-old male presenting for a physical examination. He denies experiencing fevers, chills, blurred vision, chest pain, dyspnea, abdominal pain, hematochezia, constipation, or diarrhea. He reports hemorrhoid activity for which he uses topical cream. The patient experiences difficulty initiating urination in the morning, although he is able to urinate normally once started. He declined a digital rectal examination but agreed to have a prostate-specific antigen test performed. 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 He is part of a low-dose CT scan program due to his smoking history, which he continues despite the associated risks. 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 - Smoking: Continues to smoke, part of low-dose CT scan program Review of Systems - General: Denies fevers, chills - Eyes: Denies blurred vision - Cardiovascular: Denies chest pain - Respiratory: Denies dyspnea - Gastrointestinal: Denies abdominal pain, hematochezia, constipation, diarrhea; Reports hemorrhoid activity - Genitourinary: Reports difficulty initiating urination Physical Exam General: Cooperative, healthy appearing, comfortable, no acute distress and well developed Orientation: Patient oriented x3 Limitations: No limitations Head: Normal to inspection Ears: Hearing grossly normal bilaterally Nose: Normal external nose present Face and sinus: Normal facial exam Eyes: Appearance normal, both eyes and all related structures Neck: Normal visual inspection and Yes full ROM Respiratory: Normal respiratory effort and able to speak in complete sentences. Clear/dim to auscultation bilaterally Cardiovascular: Regular rate and rhythm. S1 and S2 GI: Normal to inspection. Soft to palpation and nontender. Reports hemorrhoid activity : Testicles without masses/lesions and no hernias appreciated. Reports difficulty starting a stream in the morning Skin: No rashes or lesions noted Neuro: Patient oriented x3 Extremities: Normal to inspection. mallet finger noted with arthritis of hands Results - Tests: Prostate-specific antigen test planned Plan The patient will undergo a prostate-specific antigen test to evaluate his urinary symptoms further. He is advised to continue using topical cream for hemorrhoid management. Participation in the low-dose CT scan program will continue due to his ongoing smoking habit, which poses a risk for lung-related conditions. Patient was informed and verbally consented to the use of an ambient scribe for clinic note documentation during this visit. Discussion Notes I discussed with the patient the importance of undergoing a prostate-specific antigen test to further investigate his urinary symptoms. We also talked about the continued use of topical cream for hemorrhoid management and the significance of participating in the low-dose CT scan program due to his smoking history. Patient Instructions - Continue using hemorrhoid cream as directed. - Undergo the scheduled prostate-specific antigen test. - Maintain participation in the low-dose CT scan program. [facility] Medical History HTN (hypertension) Dyslipidemia Seasonal allergies Nicotine dependence, cigarettes, uncomplicated Multiple adenomatous polyps Anxiety Wears dentures Surgical History History of adenoidectomy History of colonoscopy Family History Other Mental health disorder Substance use disorder Social History Household Members: Significant Other Housing: House Are you a primary emergency care tech to a significant other at home: No Do you presently have visiting nurse or other home services: No Patient Tobacco Use Status: Current everyday Tobacco user Tobacco use type: Cigarette Cigarettes Per Day: 15 Years Smoked: (onset 12yo, 3/4ppd x 41yrs, 30pyh) Substance Use Type: Marijuana Current occupational status: employed 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 Cognitive needs: No Hearing needs: No Vision needs: No Questionnaire PHQ-9 Over the last 2 weeks, how often have you been bothered by any of the following problems? 1. Little interest or pleasure in doing things: not at all 2. Feeling down, depressed, or hopeless: not at all 3. Trouble falling or staying asleep, or sleeping too much: not at all 4. Feeling tired or having little energy: several days 5. Poor appetite or overeating: not at all 6. Feeling bad about yourself - or that you are a failure or have let yourself or your family down: not at all 7. Trouble concentrating on things, such as reading the newspaper or watching television: not at all 8. Moving or speaking so slowly that other people could have noticed. Or the opposite - being so fidgety or restless that you have been moving around a lot more than usual: not at all 9. Thoughts that you would be better off or of hurting yourself in some way: not at all Total score: 1 Depression Screening Interpretation: Negative Depression Screening Done: Yes 17085 - PHQ-9 Billing: Yes Source: Developed by Drs. Tonny Rockwell, Neha Stark, Cesar Flynn and colleagues, with an educational laquita from [employer]. Thrive Questionnaire Date Thrive assessed: 05/18/25 I am a: Patient What is your living situation today?: I have a steady place to live Within the past 12 months, did the food you bought not last and you didn't have the money to get more?: Sometimes True Within the past 12 months, did you worry whether your food would run out before you got money to buy more?: Sometimes True Do you have trouble paying for medicines?: No Do you have trouble getting transportation to medical appointments?: No Do you have trouble paying your heating and electricity bill?: I choose not to answer this question Do you have trouble taking care of your child, family member or friend?: No Do you have trouble with day-to-day activities such as bathing, preparing meals, shopping, managing finances, etc.?: No Are you currently unemployed and looking for a job?: No Are you interested in more education?: I choose not to answer this question Please select the resources that you would like help with: None Currently or been in a relationship where the following occur: No concerns reported THRIVE Score: 2 AUDIT C Alcohol Use Questionnaire (AUDIT-C) 1. How often do you have a drink containing alcohol?: 2-4 times a month 2. How many drinks containing alcohol do you have on a typical day when you are drinking?: 1 or 2 3. How often do you have six or more drinks on one occasion?: Never Total Score: 2 Score Reviewed/Action Taken: Yes RICHARD-7 AMB Questionnaire RICHARD-7 Date RICHARD - 7 assessed: 05/18/25 Feeling nervous, anxious, or on edge: 0 = Not at all Not being able to stop or control worryin = Not at all Worrying too much about different things: 0 = Not at all Trouble relaxin = Not at all Being so restless that it is hard to sit still: 0 = Not at all Becoming easily annoyed or irritable: 0 = Not at all Feeling afraid as if something awful might happen: 0 = Not at all Total RICHARD-7 score (0-4 normal; 5-9 mild; 10-14 moderate; 15-21 severe): 0 Source: Developed by Drs. Tonny Rockwell, Neha Stark, Cesar Flynn and colleagues, with an educational laquita from [employer]. RICHARD-7 Assessment Billing RICHARD-7 Assessment Tool: RICHARD-7 Assessment 43359 Physical exam (Primary Care) Vital Signs: Last Vital Signs Pulse 76 05/18/25 12:57 BP 136/80 05/18/25 12:57 Pulse Ox 95 05/18/25 12:57 Oxygen Delivery Method Room Air 05/18/25 12:57 BMI result Body Mass Index 24.5 Tobacco/Smoking Status: Tobacco use Status Tobacco use date assessed 05/18/25 05/18/25 13:00 Patient Tobacco Use Status Current everyday Tobacco 05/18/25 12:55 Tobacco use type Cigarette 05/18/25 12:55 PHQ-9: PHQ-9 Score PHQ-9: Total score 1 05/18/25 13:30 Depression Screening Interpretation: Negative Thrive Assessment: Date of Thrive Assessment Date Thrive assessed 05/18/25 05/18/25 13:00 Currently or been in a relationship where the following occur: No concerns reported Coding Level of Care Code Est Pt Prev Care 40-64y(96081) Diagnoses Encounter for routine adult physical exam with abnormal findings Z00. Screening PSA (prostate specific antigen) Z12.5 Additional Codes RICHARD-7 Assessment Billing - RICHARD-7 Assessment Tool: RICHARD-7 Assessment 85105 ([id number]) PHQ-9 - 83086 - PHQ-9 Billing: Yes ([id number]) Assessment & Plan Assessment & Plan (1) Encounter for routine adult physical exam with abnormal findings: Code(s): Z00. - Encounter for general adult medical examination with abnormal findings Category: Medical (2) Screening PSA (prostate specific antigen): Code(s): Z12.5 - Encounter for screening for malignant neoplasm of prostate Category: Medical Plan . Orders: Orders Complete Blood Count Auto Diff Today ALEX Hummel Z00. - Encounter for general adult medical examination with abnormal findings UA CC w/rflx Micro + Cult Today ALEX Hummel Z00. - Encounter for general adult medical examination with abnormal findings Lipid Panel Today ALEX Hummel Z00. - Encounter for general adult medical examination with abnormal findings Prostate Specific Antigen Scr Today ALEX Hummel Z12.5 - Encounter for screening for malignant neoplasm of prostate Comprehensive [place]. Panel Fast Today ALEX Hummel Z00. - Encounter for general adult medical examination with abnormal findings TSH reflex Free T4 Today ALEX Hummel Z00. - Encounter for general adult medical examination with abnormal findings Pneumococcal 20 Immunization Today ALEX Hummel Z23 - Encounter for immunization Medications: New hydrocortisone 1% 1 appl DE DAILY 28.4 grams 1RF pain ALEX Hummel pneumoc 20-gala conj-dip cr(PF) 0.5 mL IM ONCE 0.5 mL 0RF Mo Guevara, HOSPITAL RECEPTIONIST-BC Z23 - Encounter for immunization Changed From acetaminophen 500 mg PO QID PRN 20 tabs 0RF fever or pain To acetaminophen 500 mg PO ONCE PRN Chiara Drake MD From ibuprofen 600 mg PO TID PRN 90 tabs 0RF for pain To ibuprofen 600 mg PO ONCE PRN [facility]
[2025-05-18 12:57] VITALS: BP 136/80; PULSE 76; O2SAT 95; BMI 24.5
--- OUTSIDE RECORDS SUMMARY | 2025-05-18 13:43 | XMS_ITS | Data Portability ---
Author Organization [facility], [facility] Address [address] [place] [address] Care Team Providers Care Resource Paraprofessional Name Role Phone SHIKHA WEST Primary Care Provider Unavailabl e Assessment No assessment recorded. Plan of Treatment Reminders Order Date Submit Date Provider Last Modified By Organization Details Last Modified Time Details Appointments None recorded. Lab None recorded. Referral None recorded. Procedures None recorded. Surgeries None recorded. Imaging XR, hip, unilateral , 2 or 3 view 2018 019 [email or web address] Not available 9 11:41:57 Medication Orders prednisone 20 mg tablet 2019 020 INTERFACE [facility] [id number], [address], [place], [address], 0 10:36:52 amoxicilli n 875 mg-potassi um clavulanat e 125 mg tablet 2019 020 INTERFACE [facility] [id number], [address], [place], [address], 0 10:37:00 fluticason e propionate 50 mcg/actuat ion nasal spray,susp ension 2019 020 INTERFACE [facility] [id number], [address], [place], [address], 0 10:36:56 cyclobenza sterling 7.5 mg tablet 2018 019 [email or web address] [facility] [id number], [address], [place], [address], 9 17:12:30 tramadol 50 mg tablet 2018 019 [email or web address] 6 [facility] [id number], [address], [place], [address], 0 10:12:51 prednisone 20 mg tablet 2018 019 [email or web address] [id number], [address], [place], [address], 0 10:12:44 polymyxin B sulfate 10,000 unit-trime thoprim 1 mg/mL eye drops 2018 019 [email or web address] [facility] [id number], [address], [place], [address], 9 12:51:02 prednisone 20 mg tablet 2018 019 [email or web address] [id number], [address], [place], [address], 0 10:12:44 tobramycin 0.3 % eye drops 2018 019 [email or web address] [facility] [id number], [address], [place], [address], 9 11:00:08 Patient TargetsNo targets recorded. Patient Instructions Encounter Date Encounter Id Patient Instructions Last Modified By Organization Details Last Modified Time 12/10/2018 [id number] Screening, Brief Intervention, and Referral to Treatment* [email or web address] Not available 12/10/2018 11:21:00 A healthy lifestyle: care instructions Not available 12/10/2018 11:21:00 exercise [email or web address] Not available 2018 11:21:00 nutrition [email or web address] Not available 2018 11:21:00 f/u with optho. in 1-2 days if n oimprovement er if s/s worsen ( worsening eye pain. pt noted understanding Not available 12/10/2018 11:20:32 10/06/2019 [id number] hip arthritis: exercises [email or web address] Not available 10/06/2019 16:41:57 Reason for Referral None Reported. Results Created Date Observation Date Name Description Value Unit Range Abnormal Flag Note LastModifiedBy Organization Detail LastModifiedTime 12/10/19 19 12/10/2018 Scree beba, Brief Inter venti on, and Refer ral to Treat ment* In the past 2 weeks, have you felt nervous, anxious, or on edge? Not at all Not Available [address], [address], 12/10/2018 10:30:18 12/10/19 19 12/10/2018 Scree beba, Brief Inter venti on, and Refer ral to Treat ment* In the past 2 weeks, have you been unable to stop or control worrying? Not at all Not Available [address], [address], 12/10/2018 10:30:18 12/10/19 19 12/10/2018 Scree beba, Brief Inter venti on, and Refer ral to Treat ment* How many times in the last year have you used drugs/prescr iption meds for non-medical reasons? None Not Available [address], [address], 12/10/2018 10:30:18 12/10/19 19 12/10/2018 Scree beba, Brief Inter venti on, and Refer ral to Treat ment* How many times in the past year have you had 4 drinks in 1 day? 0 Not Available [address], [address], 12/10/2018 10:30:18 12/10/19 19 12/10/2018 Margi yoder, Brief Inter venti on, and Refer ral to Treat ment* Positive or Negative? negati ve Not Available [facility] [address], [place], [address], 12/10/2018 10:30:18 12/10/19 19 12/10/2018 Margi yoder, Brief Inter venti on, and Refer ral to Treat ment* BH Referral? Not needed at this time Not Available [facility] [address], [place], [address], 12/10/2018 10:30:18 11/04/20 20 11/04/2020 CBC autom ated white blood count 8.2 10*3/ uL 4.0-10 .5 Not Available [address] [place], [address], 11/04/2020 04:32:15 11/04/20 20 11/04/2020 CBC autom ated red blood count 4.65 10*6/ uL 4.70-6 .00 low Not Available [address] [place], [address], 11/04/2020 04:32:15 11/04/20 20 11/04/2020 CBC autom ated nucleated RBCs relative 0.00 % Not Available [address] [place], [address], 11/04/2020 04:32:15 11/04/20 20 11/04/2020 CBC autom ated nucleated RBCs absolute 0.00 10*6/ uL 0.00-0 .02 Not Available [address] [place], [address], 11/04/2020 04:32:15 11/04/20 20 11/04/2020 CBC autom ated hemoglobin 13.9 g/dL 13.8-1 7.2 Not Available [address] [place], [address], 11/04/2020 04:32:15 11/04/20 20 11/04/2020 CBC autom ated hematocrit 41.8 % 42.0-5 2.0 low Not Available [address] [place], [address], 11/04/2020 04:32:15 11/04/20 20 11/04/2020 CBC autom ated MCV 89.9 fL 78.0-1 00.0 Not Available [address] [place], [address], 11/04/2020 04:32:15 11/04/20 20 11/04/2020 CBC autom ated MCH 29.9 pg 27.0-3 7.0 Not Available [address] [place], [address], 11/04/2020 04:32:15 11/04/20 20 11/04/2020 CBC autom ated MCHC 33.3 g/dL 32.0-3 6.0 Not Available [address] [place], [address], 11/04/2020 04:32:15 11/04/20 20 11/04/2020 CBC autom ated SD 41.5 fL 35.1-4 3.9 Not Available [address] [place], [address], 11/04/2020 04:32:15 11/04/20 20 11/04/2020 CBC autom ated red cell distribution width 12.6 % 11.5-1 4.5 Not Available [address] [place], [address], 11/04/2020 04:32:15 11/04/20 20 11/04/2020 CBC autom ated platelet count 221 10*3/ uL 150-45 0 Not Available [address] [place], [address], 11/04/2020 04:32:15 11/04/20 20 11/04/2020 CBC autom ated mean platelet volume 9.4 fL 6.0-10 .8 Not Available [address] [place], [address], 11/04/2020 04:32:15 11/04/20 20 11/04/2020 CBC autom ated neutrophils relative 57.5 % Not Available [address] [place], [address], 11/04/2020 04:32:15 11/04/20 20 11/04/2020 CBC autom ated immature granulocytes relative 0.2 % Not Available [address] [place], [address], 11/04/2020 04:32:15 11/04/20 20 11/04/2020 CBC autom ated lymphocytes relative 31.0 % Not Available [address] [place], [address], 11/04/2020 04:32:15 11/04/20 20 11/04/2020 CBC autom ated monocytes relative 6.9 % Not Available [address] [place], [address], 11/04/2020 04:32:15 11/04/20 20 11/04/2020 CBC autom ated eosinophils relative 3.8 % Not Available [address] [place], [address], 11/04/2020 04:32:15 11/04/20 20 11/04/2020 CBC autom ated basophils relative 0.6 % Not Available [address] [place], [address], 11/04/2020 04:32:15 11/04/20 20 11/04/2020 CBC autom ated neutrophils absolute 4.7 10*3/ uL 1.5-6. 6 Not Available [address] [place], [address], 11/04/2020 04:32:15 11/04/20 20 11/04/2020 CBC autom ated immature granulocytes absolute 0.0 10*3/ uL 0.0-0. 2 Not Available [address] [place], [address], 11/04/2020 04:32:15 11/04/20 20 11/04/2020 CBC autom ated lymphocytes absolute 2.6 10*3/ uL 1.0-3. 5 Not Available [address] [place], [address], 11/04/2020 04:32:15 11/04/20 20 11/04/2020 CBC autom ated monocytes absolute 0.6 10*3/ uL 0.0-1. 0 Not Available [address] [place], [address], 11/04/2020 04:32:15 11/04/20 20 11/04/2020 CBC autom ated eosinophils absolute 0.3 10*3/ uL 0.0-0. 7 Not Available [address] [place], [address], 11/04/2020 04:32:15 11/04/20 20 11/04/2020 CBC autom ated basophils absolute 0.1 10*3/ uL 0.0-0. 1 Not Available [address] [place], [address], 11/04/2020 04:32:15 11/04/20 20 11/04/2020 lacti c acid lactic acid 0.7 mmol/ L <=1.9 Not Available [address] [place], [address], 11/04/2020 04:47:24 11/04/20 20 11/04/2020 basic metab olic panel sodium 140 mmol/ L 136-14 5 Not Available [address] [place], [address], 11/04/2020 04:48:05 11/04/20 20 11/04/2020 basic metab olic panel potassium 4.0 mmol/ L 3.4-4. 5 Not Available [address] [place], [address], 11/04/2020 04:48:05 11/04/20 20 11/04/2020 basic metab olic panel chloride 109 mmol/ L 98-107 high Not Available [address] [place], [address], 11/04/2020 04:48:05 11/04/20 20 11/04/2020 basic metab olic panel carbon dioxide 26 mmol/ L 22-30 Not Available [address] [place], [address], 11/04/2020 04:48:05 11/04/20 20 11/04/2020 basic metab olic panel blood urea nitrogen 12 mg/dL 9-20 Not Available [address] [place], [address], 11/04/2020 04:48:05 11/04/20 20 11/04/2020 basic metab olic panel creatinine 0.9 mg/dL 0.6-1. 3 Not Available [address] [place], [address], 11/04/2020 04:48:05 11/04/20 20 11/04/2020 basic metab olic panel glucose 93 mg/dL 74-109 Not Available [address] [place], [address], 11/04/2020 04:48:05 11/04/20 20 11/04/2020 basic metab olic panel calcium 8.8 mg/dL 8.8-10 .2 Not Available [address] [place], [address], 11/04/2020 04:48:05 11/04/20 20 11/04/2020 basic metab olic panel Unknown Analyte 100 mL/mi n low Not Available [address] [place], [address], 11/04/2020 04:48:05 11/04/20 20 11/04/2020 basic metab olic panel Unknown Analyte 5 8-16 low Not Available [address] [place], [address], 11/04/2020 04:48:05 11/04/20 20 11/04/2020 blood cultu re, anaer obic blood culture No growth at 18-24 hours Not Available [address] [place], [address], 11/05/2020 05:01:30 11/04/20 20 11/04/2020 blood cultu re, aerob ic blood culture No growth at 18-24 hours Not Available [address] [place], [address], 11/05/2020 05:01:32 11/04/20 20 11/04/2020 blood cultu re, aerob ic blood culture No growth at 18-24 hours Not Available [address] [place], [address], 11/05/2020 05:01:33 11/04/20 20 11/04/2020 blood cultu re, anaer obic blood culture No growth at 18-24 hours Not Available [address] [place], [address], 11/05/2020 05:01:34 11/04/20 20 11/04/2020 blood cultu re, anaer obic blood culture No growth at 48 hours Not Available [address] [place], [address], 11/06/2020 05:02:03 11/04/20 20 11/04/2020 blood cultu re, aerob ic blood culture No growth at 48 hours Not Available [address] [place], [address], 11/06/2020 05:02:04 11/04/20 20 11/04/2020 blood cultu re, aerob ic blood culture No growth at 48 hours Not Available [address] [place], [address], 11/06/2020 05:02:05 11/04/20 20 11/04/2020 blood cultu re, anaer obic blood culture No growth at 48 hours Not Available [address] [place], [address], 11/06/2020 05:02:06 11/04/20 20 11/04/2020 blood cultu re, anaer obic blood culture No growth at 120 hours Not Available [address] [place], [address], 11/09/2020 05:01:27 11/04/20 20 11/04/2020 blood cultu re, aerob ic blood culture No growth at 120 hours Not Available [address] [place], [address], 11/09/2020 05:01:33 11/04/20 20 11/04/2020 blood cultu re, aerob ic blood culture No growth at 120 hours Not Available [address] [place], [address], 11/09/2020 05:01:34 11/04/20 20 11/04/2020 blood cultu re, anaer obic blood culture No growth at 120 hours Not Available [address] [place], [address], 11/09/2020 05:01:35 11/04/[address], maxil lofac ial, w/o contr ast EXAM: CT facial bones withou t intrav enous contra st 2019. Sagitt al and meyer l reform atted images obtain ed HISTOR Y: Facial soft tissue swelli ng COMPAR RAMRIEZ: None. FINDIN GS: The orbits , zygoma and nasal bones appear intact . The maxill a and mandib le appear intact . Mucosa l thicke beba at the lower aspect of the left maxill dionicio sinus. The parana zenon sinuse s are otherw ise well aerate d. The patien t is e[place]. Right facial soft tissue swelli ng. This extend s within the right aspect of the neck as well as along the right facial soft tissue s at the level of the mandib le, maxill a and zygoma . The appear ance is sugges tive of edema/ cellul itis. Limite d charac teriza tion of the soft tissue s due to lack of intrav enous contra st. The airway appear s patent and within the midlin e. Reacti ve appear ing lympha denopa thy most promin ent along the right jugula r chain. 1. No acute osseou s abnorm ality of the facial bones. 2. Extens kelsie right facial soft tissue swelli ng and skin thicke beba. This likely repres ents edema/ cellul itis. This extend s inferi or into the visual ized portio n of the right neck. 3. No organi zed or draina ble fluid collec tion. 4. Partia lly limite d charac teriza tion of the soft tissue s due to lack of intrav enous contra st. 5. No acute osseou s abnorm ality of the facial bones. 6. Reacti ve appear ing lympha denopa thy. 7. Mucosa l thicke beba at the inferi or left maxill dionicio sinus. __ Electr onical ly signed by: MATTEO RUGGIERO M.D. Date: 2019 Time: 03:50 Right- sided facial swelli ng follow ing nasal trauma one week ago, pt states he thinks he has a sinus infect ion [email or web address] [address] [place], [address], 11/04/2020 11:06:50 Result Notes Documentation Provider Name and Address Organization Details Recorded Time Ct, Maxillofacial, W/o Contrast : EXAM: CT facial bones without intravenous contrast 11/04/2020. Sagittal and coronal reformatted images obtained HISTORY: Facial soft tissue swelling COMPARISON: None. FINDINGS: The orbits, zygoma and nasal bones appear intact. The maxilla and mandible appear intact. Mucosal thickening at the lower aspect of the left maxillary sinus. The paranasal sinuses are otherwise well aerated. The patient is edentulous. Right facial soft tissue swelling. This extends within the right aspect of the neck as well as along the right facial soft tissues at the level of the mandible, maxilla and zygoma. The appearance is suggestive of edema/cellulitis. Limited characterization of the soft tissues due to lack of intravenous contrast. The airway appears patent and within the midline. Reactive appearing lymphadenopathy most prominent along the right jugular chain. 1. No acute osseous abnormality of the facial bones. 2. Extensive right facial soft tissue swelling and skin thickening. This likely represents edema/cellulitis. This extends inferior into the visualized portion of the right neck. 3. No organized or drainable fluid collection. 4. Partially limited characterization of the soft tissues due to lack of intravenous contrast. 5. No acute osseous abnormality of the facial bones. 6. Reactive appearing lymphadenopathy. 7. Mucosal thickening at the inferior left maxillary sinus. Electronically signed by: MATTEO RUGGIERO M.D. 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 +, viral load negative [facility], [facility] 7 20:20:42 Lenard klein Active 2017 Kim Risse [facility], [facility] 8 10:29:39 Tobacco user 889200270 Active 2017 [facility] 8 10:31:15 Dental consulta tion and report Completed 201412/16/2017 Recorded Elsewhere : No;Locati on: [facility]; franci: N;Practic e ID: [id number] Kim patino, [facility] 8 10:24:20 Preventi ve dental procedur e Completed 201512/16/2017 Recorded Elsewhere : No;Locati on: [facility];Carlos koroma: N;Practic e ID: [id number] Kim patino, [facility] 8 10:24:22 Problem Notes None recorded. Procedures Surgical History Date Name Laterality Status Provider Name and Address Organization Details Recorded Time tonsilectom y/adenoids completed Diana Whitlock CMA [facility] 08/01/2017 15:28:08 Imaging Results None recorded. Procedure Notes None recorded. Medical Equipment None Reported. Allergies Allergen ID Allergen Name Allergen Category Reaction Reaction Severity Criticality Documentation Date Start Date Code Code System Note Provider Name and Address Organization Details Recorded Time 463900 wasp venoms environme nt hives Not available Not available 06/04/2019 90730 RxNorm Alexandria Lemons CMA [facility] 9 12:51:19 No known drug allergies Medications Name Sig Start Date Stop Date Status Note LastModified by Organization Details LastModified Time hydrocodone 5 mg-acetamin ophen 325 mg tablet Take 1 tablet every 6 hours by oral route for 2 days. 12/10 completed Not Available Not Available Not Available prednisone 20 mg tablet Take 2 tablets every day by oral route. 2019 active Not Available Not Available Not Avai lable sulfamethox azole 800 mg-trimetho prim 160 mg tablet Take 1 tablet every 12 hours by oral route for 14 days. 12/10 completed Not Available Not Available Not Available tramadol 50 mg tablet Take 1 tablet every 6 hours by oral route as needed. 05/17 completed Not Available Not Available Not Available cephalexin 500 mg capsule 08/19 completed Not Available Not Available Not Available tobramycin 0.3 % eye drops INSTILL 2 DROP INTO AFFECTED EYE(S) BY OPHTHALMI C ROUTE EVERY 4 HOURS 03/12 completed Not Available Not Available Not Available polymyxin B sulfate 10,000 unit-trimet hoprim 1 mg/mL eye drops INSTILL 1 DROP INTO AFFECTED EYE(S) BY OPHTHALMI C ROUTE EVERY 6 HOURS for 7 days 06/04 completed Not Available Not Available Not Available mupirocin 2 % topical ointment APPLY A SMALL AMOUNT TO THE AFFECTED AREA BY TOPICAL ROUTE 3 TIMES PER DAY 12/10 completed Not Available Not Available Not Available ketoconazol e 2 % topical cream APPLY TO THE AFFECTED AREA(S) BY TOPICAL ROUTE ONCE DAILY 12/16 completed Not Available Not Available Not Available fluticasone propionate 50 mcg/actuati on nasal spray,suspe nsion [place] 1 spray every day by intranasa l route. 2019 active Not Available Not Available Not Avai lable amoxicillin 875 mg-potassiu m clavulanate 125 mg tablet Take 1 tablet every 12 hours by oral route. 2019 active Not Available Not Available Not Avai lable cyclobenzap rine 5 mg tablet Take 1 tablet 3 times a day by oral route as needed. 05/17 completed Not Available Not Available Not Available cyclobenzap rine 7.5 mg tablet Take 1 tablet 3 times a day by oral route as needed. 10/06 completed Not Available Not Available Not Available Chantix Starting Month Box 0.5 mg (11)-1 mg (42) tablets in dose pack take as directed 12/10 completed Not Available Not Available Not Available Vitals Date Recorded Body height Body mass index (BMI) Body weight Respiratory rate Oxygen saturation Oxygen saturation in Arterial blood by Pulse oximetry Heart rate Body temperature Systolic blood pressure Diastolic blood pressure Provider Name and Address Organization Details Last Updated DateTime 9 177.8 cm 26.3 kg/m2 07195.4 g 16 /min 97 % 97 % 69 /min 97.5 [degF] 138 mm[Hg] 78 mm[Hg] Lynn Sahni CMA [facility] 9 10:33:03 Date Recorded Body height Body mass index (BMI) Body weight Body temperature Respiratory rate Oxygen saturation Oxygen saturation in Arterial blood by Pulse oximetry Heart rate Systolic blood pressure Diastolic blood pressure Provider Name and Address Organization Details Last Updated DateTime 9 177.8 cm 25.8 kg/m2 18079.6 3 g 98 [degF] 20 /min 98 % 98 % 70 /min 120 mm[Hg] 70 mm[Hg] Birgit [place] [facility] 9 11:03:19 Date Recorded Body height Body mass index (BMI) Body weight Body temperature Heart rate Respiratory rate Systolic blood pressure Diastolic blood pressure Provider Name and Address Organization Details Last Updated DateTime 0 177.8 cm 25 kg/m2 98702.0 7 g 98.5 [degF] 78 /min 18 /min 134 mm[Hg] 86 mm[Hg] Jackie Bowling [facility] 0 10:12:12 Date Recorded Body height Body temperature Heart rate Oxygen saturation Oxygen saturation in Arterial blood by Pulse oximetry Systolic blood pressure Diastolic blood pressure Provider Name and Address Organization Details Last Updated DateTime 9 177.8 cm 97.8 [degF] 62 /min 98 % 98 % 132 mm[Hg] 81 mm[Hg] Alexandria Lemons [facility] 9 12:53:38 Date Recorded Body height Body mass index (BMI) Body weight Body temperature Oxygen saturation Oxygen saturation in Arterial blood by Pulse oximetry Heart rate Systolic blood pressure Diastolic blood pressure Provider Name and Address Organization Details Last Updated DateTime 9 177.8 cm 28.2 kg/m2 38483.5 g 98.4 [degF] 97 % 97 % 74 /min 134 mm[Hg] 76 mm[Hg] Alexandria Lemons [facility] 9 16:03:47 Social History Question Answer Notes LastModified by Organizat ion Details LastModified Time Tobacco Smoking Status Current Every Day Smoker Diana Whitlock CMA [facility] 08/01/2017 15:16:16 Do You Have An Advance Directive? Yes Information not available 12/10/2018 What Is Your Level Of Caffeine Consumption? Heavy Information not available 12/10/2018 How Much Tobacco Do You Chew? None Information not available 08/01/2017 Concerns About Meeting Basic Needs (food, Housing, Heat, Etc)? No Information not available 12/10/2018 What Type Of Diet Are You Following? REGULAR Information not available 12/10/2018 Which Illicit Or Recreational Drugs Have You Used? None Stopped Smoking Marijuana A Few Months Ago. Information not available 08/01/2017 Hard Of Hearing Or Deaf In One Or Both Ears? No Information not available 12/10/2018 Legally Blind In One Or Both Eyes? No Information not available 12/10/2018 Live Alone Or With Others? With Others Information not available 12/10/2018 What Was The Date Of Your Most Recent Tobacco Screening? 10/06/2019 Information not available 10/06/2019 Seat Belts Used Routinely Yes Information not available 12/10/2018 Smoke Alarm In Home Yes Information not available 12/10/2018 At What Age Did You Start Smoking Tobacco? 12 Information not available 08/01/2017 How Much Tobacco Do You Smoke? 1 PPD [email or web address] Information not available 12/16/2017 General Stress Level Low Information not available 12/10/2018 Do You Use Sunscreen Routinely? No Information not available 12/10/2018 Has Tobacco Cessation Counseling Been Provided? Yes [email or web address] Information not available 12/16/2017 On What Date Was Tobacco Cessation Counseling Provided? 05/17/2020 [email or web address] Information not available 05/17/2020 How Many Years Have You Smoked Tobacco? 35 Information not available 08/01/2017 Sex: Unknown Functional Status Question Answer Note LastModified by Organizat ion Details LastModified Time What is your level of alcohol consumption? None Former heavy drinker, alcoholic Information not available 08/01/2017 Do you or have you ever used smokeless tobacco? Never used smokeless tobacco Information not available 10/06/2019 Are you able to walk? YESWOREST Information not available 12/10/2018 Are you able to care for yourself? Yes Information not available 12/10/2018 Mental Status None recorded. Family History Nothing Reported. Medical History Condition Response Allergies (Food, seasonal, environmental ) N Coronary Artery Disease N Gout N Other Y Hyperthyroidism N Blood Transfusion N Breast Cancer N Hypothyroidism N COPD N Dermatologic Disorders N Developmental or Behavioral Disorders N Defects or Inherited Disease N Gestational Diabetes N History of STI N Deep Vein Thrombosis N Polycystic ovary syndrome N Anxiety Disorder N Meniere's disease N Muscle, Joint, or Bone Problems N Autoimmune disease N Obesity N Vision or Eye Problems N Head Injury/Concussion N Infertility N Stroke N Varicosities N Neurologic/Epilepsy N Endometriosis N Bladder or Kidney Problems N Back Injury N High Cholesterol N Psychiatric/Mental Health Condition N Headaches N Fibromyalgia N Kidney Disease N Ear or Hearing Problems N Hospitalizations N Hematologic disorders/Anemia N GI Problems N Acne N ADD/ADHD N Eating Disorder N Anemia N MRSA exposure N Brain Injury N Heart Attack (CO) N Diabetes N Ovarian Cancer N Bedwetting N Hepatitis/Liver Disease N Bleeding Disorder N Tuberculosis N AIDS/HIV N Congestive Heart Failure (CHF) N Abuse/Domestic Violence N Diverticulitis N Asthma N Trauma/Violence N Substance Abuse N Depression/ depression N Heart Disease N Pulmonary Embolism N Pre-Eclampsia N Hypertension N Osteoporosis N Past Encounters Encounter ID Performer Location Encounter Start Date Encounter Closed Date Diagnosis/Indication Diagnosis SNOMED-CT Code Diagnosis ICD10 Code Diagnosis Note [id number] KIM WOODALL MD [address] [address] 08/01/2017 14:38:45 08/01/2017 17:40:04 Screening for disorder 436083686 Z13.9 multiple tattoos, wants hep c test Cellulitis 414063691 L03 .90 Seborrheic dermatitis 50 134909 L21.9 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 Pure hypercholesterolemia 492113815 E78.00 wants to try diet Adult heal th examination 197246839 Z00.00 declines all vaccines [id number] Sal Sousa MD [address] [address] 08/19/2018 12:26:40 08/20/2018 11:07:54 Normal weight 70940074 Z68.24 Body Mass Index (BMI) 20.0-24.9, adult Cellulitis 584654470 L03 .90 pt was instructed to take meds as directed. f/u with pcp in 3-4 days. no working or driving with in 6 hrs of taking norco. display carver matched pt meds. Abrasion 269627121 T14.8 XXA cold compresses as directed. [id number] Sal Sousa MD [address] [address] 12/10/2018 10:20:40 12/10/2018 15:28:38 Overweight 218809727 E66.3 Body mass index 25-29 - overweight 109971972 Z68.26 Screening for disorder 992911583 Z13.9 Corneal abrasion 8551665 2 S05.00XA meds as directed. eye patch x 24-48 was recommende d. Seasonal a llergic rhinitis 015050275 J30.2 Avoid and limit exposure to triggers/a llergens. Continue to take prescribed medication s. Intranasal steroid use 1 x daily.OTC allergy medication such as Zyrtec, Nica, and Claritin. [id number] Juanita Stark MD [address] [address] 03/12/2019 10:58:06 03/13/2019 08:45:53 Acute conjunctivitis 88103699 H10.31 eye stained and viewed under black light- no FB or corneal uptake noted.sing le dose of tetracaine eye drop instilled for comfort.Sc ripted for polymyxin, trimeth eye drops and advised pt to follow up if no improvemen t in next 2-3 days or go to ophthalmol ogist if any changes in visual acuity. [id number] Juanita Stark MD [address] [address] 06/04/2019 12:43:52 06/04/2019 15:59:39 Right flank pain 419449196 R10.9 discussed OP workup for kidney stone vs ER visit as well as possible plan of care depening on CT findings. Due to his pain level and symptoms he decided ER visit for pain control and r/o renal stone. FU as needed [id number] Juanita Stark MD [address] [address] 10/06/2019 15:39:46 10/07/2019 09:54:35 Low back pain 836686369 M54.5 Acute back strain. No red flags. Discussed that acute back strains may take up to 6-8 weeks for complete resolution in symptoms. Walking is best exercise in acute phase. Education given for easy stretching exercises. May use extra strength acetaminop hen and NSAIDs for pain. May also use ice/heat for comfort. Discussed PT if not improving after 4-6 weeks. Cannot take off work right now for PT. We discussed exercises and I provided written and verbal instructio ns. He is to do these 10 reps 3 times a day and f/u in 1 month. If no improvemen t will consider further imaging Pain of ri ght hip joint 2492864354 98208 M25.551 Likely OA, will get imaging and fu as indicated. Discussed possible injections vs ortho referral [id number] Juanita Stark MD [address] [address] 05/17/2020 10:01:05 05/17/2020 12:26:19 Acute otitis media with effusion 449721697 H65.199 Patient presents with signs/symp toms of otitis media. Will treat as below. Supportive care reviewed: humidifier use, raise HOB, saline nasal spray, encourage PO fluids. Recommende d acetaminop hen/ibupro fen PRN pain/fever Follow up as below. Cellulitis of right external ear 7214035683 961483 H60.11 Right ear with swelling and redness to outer area, painful on examinatio n. abx as above, will add prednisone to help with inflammati on as well. Encouraged to call/RTC if T>100.5, worsening swelling or redness to ear or face Health Concerns Section Related Observation LastModified by Organization Detai ls LastModified Time None Recorded Concern Status LastModified by Organization Details LastModified Time None Recorded Advance Directives Directive Y: Payers Insurance Date Sequence Insurance Name Policy Number Policy Farfan Covered Member ID Farfan Member ID Guarantor Name 02/28/2022 1 [employer] BETTER [employer] OF ID - [facility] ON OR AFTER 10/18/2020 (MEDICAID REPLACEMENT - HMO) Mauro Gant [id number] Mauro Gant 02/28/2022 1 [facility] (MEDICAID HMO) [facility] Mauro Gant [id number] Mauro Gant 02/28/2022 1 MEDICAID-[place]: [place] [employer] Mauro Gant [id number] Mauro Gant Notes Date Note Type Note Provider Name and Address Organization Details Recorded Time 12/10/2018 text/html right eye pain 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 felt like something went in his eye. has foreign body sensation. some blurred vision but not at this time. light sensitive and tearing.pt has had congestion,runny nose,sneezing and chest congestion( feels that it is do to insulation) for 2-3 days. no otc meds have been usedno other s/s at this time Mauro patino, [facility] 12/10/2018 11:36:26 03/12/2019 text/html Eye InjuryReport ed bypatient.Notes:got debris from levi in rt eye 2 days ago flushed it and still swollen. pt states initially washed eye w water but has remained irritated since. Describes normal visual acuity. has used some left over antibiotic drop intermittently w/o success. Some UR congestion, cough and MOON. No fever, chills. has had past eye infections Rajiv patino, [facility] 03/12/2019 11:47:37 06/04/2019 text/html c/o today of rig ht sided back pain x 1 month but severe the last 24 hoursfrank blood in urine this morningalso c/o sharp sever pain in right groin/testicle, denies swelling or redness to testicleno urinary frequency but when he goes it's urgent and he cannot stand to urinate drinks a lot of energy drinks and works outside in the heat a lot Shikha West APRN [address] [place], [address], [facility] 06/04/2019 13:23:26 10/06/2019 text/html f/u back painsaw him once for this - has been seeing chiro which has helped a lotpain is low back on right side, right anterior hip and has sharp pains shoot down the leg into left foot states he was doing much better until about 5 days ago, he fell one day and landed on his back and then next day was moving some patio furniture and twisted at the waist and has had back pain 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 Shikha West APRN [address] [place], [address], [facility] 10/06/2019 17:00:06 05/17/2020 text/html acute visitc/o b ilat ear pain R > L x 2 weeks worseninghas bites from red mites from trees in both ears and back of head/neckalso had infected hair follicle/abscess in back of head but this has drained on it's own and is not as bothersomestates rt outer ear has drained a lot of fluid from bite wound and he has picked scab off denies hearing loss - just sounds muffledhas a lot of sinus congestion/pressure 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
== END 2025-05-18 13:49 | disposition home or self-care (01) ==
LOC: HO.HMCC 12:52
PROVIDERS: PCP Nurse Practitioner Family; Visit Provider Nurse Practitioner Family
DX: Z00.01 Encounter for general adult medical examination with abnormal findings (principal); Z12.5 Encounter for screening for malignant neoplasm of prostate; Z23 Encounter for immunization

== ENCOUNTER → 2025-05-18 12:51 | Outpatient (BNVA) | payer OTHER, SELFPAY | PROVIDERS: PCP Nurse Practitioner Family; Visit Provider Nurse Practitioner Family | DX: Z00.01 Encounter for general adult medical examination with abnormal findings (principal); Z23 Encounter for immunization | CPT/HCPCS: 90471; 90677; 96127 ==

== ENCOUNTER 2025-08-27 09:16 | Outpatient (REF) | payer OTHER, SELFPAY ==
[2025-08-27 10:10] LABS: MANUAL DIFF FLAG NO
[2025-08-27 10:15] LABS: Hematocrit 48.1 % (42.0-52.0); Hemoglobin 16.2 g/dl (14.0-18.0); Imm Gran Abs Auto 0.02 X10*3/uL (0.00-0.03); Imm Gran Pct Auto 0.3 % (0.0-0.4); Lymphocytes Absolute Auto 2.2 X10*3/uL (1.2-4.9); Mean Corpuscular HGB Conc 33.7 g/dl (31.0-36.0); Mean Corpuscular Hemoglobin 30.4 pg (27.0-33.0); Mean Corpuscular Volume 90.2 fL (80.0-98.0); NRBC Abs Auto 0.000 X10*3/uL (0.0-0.012); NRBC Pct Auto 0.0 /100WBC (0.0-0.2); Platelet Count 207 X10*3/uL (160-400); Red Blood Count 5.33 X10*6/uL (4.60-5.80); White Blood Count 7.6 X10*3/uL (4.8-10.8)
[2025-08-27 11:06] LABS: Alanine Aminotransferase 28 U/L (0-40); Albumin Level 4.6 g/dL (3.5-5.0); Alkaline Phosphatase 84 U/L (39-117); Anion Gap 10 (12-20); Aspartate Amino Transferase 29 U/L (5-37); Blood Urea Nitrogen 13 mg/dL (9-16); Calcium 9.5 mg/dL (8.4-10.2); Carbon Dioxide 29 mmol/L (22-29); Chloride 107 mmol/L (96-108); Cholesterol 145 mg/dL (<200); Estimated Glomerular Filt Rate > 60; HDL Cholesterol 43 mg/dL (>40); Potassium 4.0 mmol/L (3.3-5.1); Sodium 142 mmol/L (135-145); Total Protein 7.3 g/dL (6.5-8.0); Triglycerides 88 mg/dL (<150)
[2025-08-27 13:10] LABS: Appearance Urine Clear; Glucose Urine UA Negative (Negative); PH 7.0 (5.0-9.0); Specific Gravity - Urine 1.020 (1.005-1.025)
== END 2025-08-27 09:17 | disposition home or self-care (01) ==
LOC: HO.HMGCLDS 09:16
PROVIDERS: PCP Nurse Practitioner Family; Visit Provider Nurse Practitioner Family
DX: Z00.01 Encounter for general adult medical examination with abnormal findings (principal); Z12.5 Encounter for screening for malignant neoplasm of prostate; Z13.6 Encounter for screening for cardiovascular disorders; Z13.29 Encounter for screening for other suspected endocrine disorder; Z13.0 Encounter for screening for diseases of the blood and blood-forming organs and certain disorders involving the immune mechanism
CPT/HCPCS: 36415; 80053; 80061; 81003; 84153; 84443; 85025

== ENCOUNTER 2025-09-23 12:47 | Outpatient (AMB) | payer OTHER, SELFPAY ==
[2025-09-23 12:49] VITALS: BP 136/80; PULSE 82; TEMP 36.7; O2SAT 96
--- NOTE | 2025-09-23 12:50 | MHC.OFFWIV ---
Intake Vital Signs 09/23/25 12:49 Height 5 ft 11 in BMI Reason not done Patient refused/unable BP 136/80 Blood Pressure Location Rt brachial Position Sitting Pulse 82 Pulse Source Pulse Oximeter Temp 98.1 F Temp Source Oral Pulse Oximetry (%) 96 Intake Visit Reasons: EP-rt side face pain & swollen Patient Tobacco Use Status: Current everyday Tobacco user Allergies No Known Allergies Allergy (Verified 09/23/25 12:50) Do you need a note to return to daycare/school/sports/work: No HPI HPI Comments History of Present Illness Details History of Present Illness - The patient is a 55-year-old male presenting with right sided facial swelling and pain. - Reports noticing an ingrown hair on the right confucianist 2 days ago. - Symptoms began two days ago, then he started to develop right eye swelling and a fever developing last night. - He states that he popped it on his own and squeezed out pus. - He states that he continues to have pain in the area but he no longer has any discharge or bleeding. - He then noticed canker sores in his mouth and he had pain along the right side of his face. 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 - History of self-treatment with hydrocortisone and diclofenac gel, on the wound. - Denies fever, chills, ear pain, cough, sore throat, MOON, dizziness, CP or SOB. Physical Exam General: Cooperative, healthy appearing, comfortable, no acute distress and well developed Orientation: Patient oriented x3 Limitations: No limitations Head: Normal to inspection Face and sinus: Swelling under the right eye. Eyes: PERRLA EOMI. Sclera is white, conjunctiva is pink. Ears: No erythema noted in the canal. TM is clear, not bulging. Bony landmarks noted. No discharge or cerumen. No tragus or mastoid tenderness noted. Neck: Normal visual inspection and Yes full ROM. No lymphadenopathy noted. Respiratory: Normal respiratory effort and able to speak in complete sentences. Clear to auscultation bilaterally. No w/r/r noted. Cardiovascular: Regular rate and rhythm. Normal S1 and S2. No m/r/g noted. Skin: No rashes noted. Scabbed, closed lesion noted on the right confucianist with erythema and warmth. No discharge noted, no induration noted. Patient was informed and verbally consented to the use of an ambient scribe for clinic note documentation during this visit. [facility] Medical History (Updated 08/27/25 @ 12:23 by ALEX Hummel) [place] disease HTN (hypertension) Dyslipidemia Seasonal allergies Nicotine dependence, cigarettes, uncomplicated Multiple adenomatous polyps Anxiety Wears dentures Surgical History History of adenoidectomy History of colonoscopy Family History Other Mental health disorder Substance use disorder Social History Household Members: Significant Other Housing: House Are you a primary skin care technician to a significant other at home: No Do you presently have visiting nurse or other home services: No Patient Tobacco Use Status: Current everyday Tobacco user Tobacco use type: Cigarette Cigarettes Per Day: 15 Years Smoked: (onset 12yo, 3/4ppd x 41yrs, 30pyh) Substance Use Type: Marijuana Current occupational status: employed 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 Cognitive needs: No Hearing needs: No Vision needs: No Review of Systems Const All systems reviewed & are unremarkable except as noted in HPI and below Physical Exam Vital Signs: Last Vital Signs Temp 98.1 F 09/23/25 12:49 Pulse 82 09/23/25 12:49 BP 136/80 09/23/25 12:49 Pulse Ox 96 09/23/25 12:49 Assessment & Plan Assessment & Plan (1) Cellulitis and abscess of face: Code(s): L03.211 - Cellulitis of face; L02.01 - Cutaneous abscess of face Plan Most likely an ingrown hair that became an abscess, drained and now has a cellulitis plan - tylenol or motrin as needed - Bactrim BID for 7 days - Keflex QID for 7 days - Apply bactroban ointment to the area TID - watch for signs of infection such as erythema, warmth, induration, discharge, fever, eye pain, etc - follow up with PCP Medications: New sulfamethoxazole-trimethoprim 800-160 mg (Bactrim DS) 1 tab PO Q12H 14 tabs 0RF cephalexin 500 mg PO Q6H 28 caps 0RF 7 days mupirocin 2% 1 appl topical TID 22 grams 0RF Coding Level of Care Code Est Pt Level 3 (10053) Diagnoses Cellulitis and abscess of face L03.211; L02.01
== END 2025-09-23 13:56 | disposition home or self-care (01) ==
PROVIDERS: PCP Nurse Practitioner Family; Visit Provider Physician Assistant Medical
DX: L03.211 Cellulitis of face (principal); L02.01 Cutaneous abscess of face